=== PATIENT | male | born 1980 | race Caucasian/White ===

== ENCOUNTER 2019-01-27 18:58 | Emergency (ER) | payer OTHER ==
--- NOTE | 2019-01-27 21:19 | ED Physician Documentation ---
History of Present Illness - Stated complaint Stated Complaint: SI - Chief complaint Chief Complaint: MHE - Additonal information Additional information: This is a 38-year-old male who presents with a resolved fleeting thought of self-harm. Patient states that he is unhappy with his current work, he feels like he is really not contributing in any meaningful way at work, and he has spoken with the supervisors multiple times about changing positions and he is been told this is not possible. He has had increasing feelings of frustration and at home he feels that he has been acting distant towards his and his child. He this morning when he was driving to work had a brief moment where he thought "I could undo my seatbelt open the door and jump out of my car." He immediately felt guilty about this, and he is confident he would never take such an action. He has never been depressed before in his life, denies substance abuse. He drinks alcohol socially once in the great while. He mentioned to his supervisor fertilizer the episode in the car to help demonstrate how frustrated he is with his current situation, and they sent him here for evaluation. Review of Systems Constitutional: denies: Fever Cardiac: denies: Chest pain / pressure Respiratory: denies: Dyspnea GI: denies: Abdominal Pain : denies: Dysuria Neurologic: denies: Generalized weakness Psychiatric: reports: Depressed PD PAST MEDICAL HISTORY - Past Medical History Cardiovascular: Hypertension - Past Surgical History General: Appendectomy - Present Medications Home Medications: Ambulatory Orders Medication Instructions Recorded Confirmed Lisinopril 1 tab PO DAILY 01/27/19 01/27/19 - Allergies Allergies/Adverse Reactions: Allergies Allergy/AdvReac Type Severity Reaction Status Date / Time No Known Drug Allergies Allergy Verified 01/27/19 21:25 - Living Situation Living Situation: reports: With family Living Arrangement: reports: At home - Social History Does the pt smoke?: No PD ED PE NORMAL - Vitals Vital signs reviewed: Yes - General General: Alert and oriented X 3, No acute distress - HEENT HEENT: PERRL - Neck Neck: Supple, no meningeal sign - Cardiac Cardiac: RRR, No murmur - Respiratory Respiratory: No respiratory distress, Clear bilaterally - Abdomen Abdomen: Normal bowel sounds, Non distended - Derm Derm: Warm and dry - Extremities Extremities: No deformity - Neuro Neuro: Alert and oriented X 3 - Psych Psych: Other (Alert, cooperative, normal affect. No hallucinations, endorses so me depression. No active suicidal ideation. No HI.) Results - Vitals Vitals: Oxygen O2 Source Room air - Labs Labs: Laboratory Tests 01/27/19 01/27/19 21:30 21:30 WBC 7.8 RBC 4.79 Hgb 15.8 Hct 45.3 MCV 94.6 H MCH 33.0 H MCHC 34.9 RDW 11.9 L Plt Count 287 MPV 8.6 Neut # (Auto) 5.7 Lymph # (Auto) 1.1 L [place] # (Auto) 0.7 Eos # (Auto) 0.2 Baso # (Auto) 0.1 Absolute Nucleated RBC 0.00 Nucleated RBC % 0.0 Sodium 138 Potassium 3.5 Chloride 96 L Carbon Dioxide 31 Anion Gap 11.0 BUN 12 Creatinine 1.2 Estimated GFR (MDRD) 69 L Glucose 94 Calcium 9.4 Ethyl Alcohol < 5.0 PD MEDICAL DECISION MAKING - ED course Complexity details: considered differential (Depression, SI, thyroid disturbance, substance use) ED course: Patient is well-appearing on examination, he is logical, cooperative, and has good insight into his thoughts and depression. He explains that he had one isolated episode of suicidal ideation on the way to work today, has not any suicide attempts, He felt immediately guilty about his thoughts and he tells me he would never actually commit suicide. Labs are unremarkable. His depression seems to be linked specifically to his current lack of job satisfaction. He states that he has talked to command several times about this and he does not feel like he is making any progress and this is causing him to feel more depressed and annoyed with work, and this is overflowing other parts of his life. Patient is very low risk for suicide at this time. He has good support structure, and he is linked into health through the [employer]. I spoke to an officer who arrived in the emergency department, and they [place]. They also plan to put him on a 24-hour watch, although I do not feel strongly about this given t hat he is not suicidal and is very reasonable at this time, and he will be with his at home, and will have follow up within 12 hours. I reviewed return precautions, resources for help, and the plan of care, of which patient agreed. He continues to deny SI and has a normal affect on discharge. Departure - Departure Disposition: 01 Home, Self Care Clinical Impression: Thoughts of self harm Condition: Good Instructions: ED Depression Follow-Up: DOUG RANGEL [Primary Care Provider] - Within 3 Days Comments: It sounds like you are depressed, and this is likely related to your current unhappiness with your work. Your labs today did not reveal any obvious contributing causes to your feelings of depression. I do not think you need to be hospitalized for your depression at this time, but it is very important that you follow-up with a mental health provider tomorrow morning like we talked about. If you have any increasing thoughts of self-harm, please return to the emergency department immediately. The suicide prevention Lifeline is . Please continue to talk to your supervisors about potential changes to your work. Discharge Date/Time: 01/27/19 22:41
[2019-01-27 21:24] VITALS: BP 163/110
[2019-01-27 21:34] LABS: BASOPHILS # (AUTO) 0.1 10^3/uL (0.0-0.1); EOSINOPHILS # (AUTO) 0.2 10^3/uL (0.0-0.7); EOSINOPHILS % (AUTO) 1.9 %; HGB - HEMOGLOBIN 15.8 g/dL (14.0-18.0); LYMPHOCYTES # (AUTO) 1.1 10^3/uL (1.5-3.5); LYMPHOCYTES % (AUTO) 14.5 %; MEAN CORPUSCULAR HGB CONC 34.9 g/dL (32.0-36.0); MEAN CORPUSCULAR VOLUME 94.6 fL (80.0-94.0); MEAN PLATELET VOLUME 8.6 fL (7.4-11.4); MONOCYTES # (AUTO) 0.7 10^3/uL (0.0-1.0); MONOCYTES % (AUTO) 8.9 %; NEUTROPHILS # (AUTO) 5.7 10^3/uL (1.5-6.6); NEUTROPHILS % (AUTO) 73.3 %; PLT - PLATELET COUNT 287 10^3/uL (130-450); RED BLOOD COUNT 4.79 10^6/uL (4.70-6.10); RED CELL DISTRIBUTION WIDTH 11.9 % (12.0-15.0); WHITE BLOOD COUNT 7.8 x10^3/uL (4.8-10.8)
[2019-01-27 21:44] LABS: BUN - BLOOD UREA NITROGEN 12 mg/dL (6-20); CALCIUM 9.4 mg/dL (8.5-10.3); CARBON DIOXIDE - CO2 31 mmol/L (21-32); CHLORIDE 96 mmol/L (101-111); CREATININE 1.2 mg/dL (0.6-1.2); GFR - MDRD 69 (>89); GLUCOSE 94 mg/dL (70-100); SODIUM 138 mmol/L (135-145)
== END 2019-01-27 22:41 | disposition home or self-care (01) ==
LOC: ED 18:58
DX: F32.9 Major depressive disorder, single episode, unspecified (principal); R45.851 Suicidal ideations; I10 Essential (primary) hypertension
CPT/HCPCS: 36415; 80048; 80320; 85025; 99283

== ENCOUNTER 2019-02-24 14:46 | Emergency (ER) | payer OTHER ==
--- NOTE | 2019-02-24 15:02 | ED Physician Documentation ---
PD HPI LOWER EXT INJURY - Stated complaint Stated Complaint: LT TOE INJURY - Chief complaint Chief Complaint: Ext Problem - History obtained from History obtained from: Patient - History of Present Illness PD HPI LOW EXT INJURY LOCATION: Left, Toe (His great toe was injured when another player playing [employer] stepped on his toe. He has pain at the great toe and also lifting of the distal portion of the toe. The base of the toenail is good.) Type of injury: Blunt / blow (stepped on by another person playing [employer], with toe pain and lifting of end of toenail.) Timing - onset: How many hours ago (1), Today Timing - duration: Hours (1) Timing - details: Abrupt onset, Still present Worsened by: Moving, Palpating Associated symptoms: No: Weakness, Numbness Similar symptoms before: Has not had sx before Review of Systems Skin: denies: Laceration (s) Musculoskeletal: reports: Extremity pain (right great toe) Neurologic: denies: Focal weakness, Numbness PD PAST MEDICAL HISTORY - Past Medical History Cardiovascular: Hypertension - Past Surgical History Past Surgical History: Yes General: Appendectomy HEENT: Rhinoplasty - Present Medications Home Medications: Ambulatory Orders Medication Instructions Recorded Confirmed lisinopriL [Lisinopril] 1 tab PO DAILY 01/27/19 01/27/19 - Allergies Allergies/Adverse Reactions: Allergies Allergy/AdvReac Type Severity Reaction Status Date / Time Sulfa (Sulfonamide Allergy Rash Verified 02/24/19 14:57 Antibiotics) - Social History Does the pt smoke?: No Smoking Status: Never smoker Does the pt drink ETOH?: Yes Does the pt have substance abuse?: No - Immunizations Immunizations are current?: Yes - POLST Patient has POLST: No PD ED PE NORMAL - Vitals Vital signs reviewed: Yes - General General: Alert and oriented X 3, Well developed/nourished, Other (He does appear very uncomfortable due to the toe pain. There is lifting of the distal third of the nail and a perpendicular direction to the nailbed. There is minimal bleeding of the nailbed. The base of the nail is not lifted and there is no subungual hematoma. The toe itself is generally tender with minimal swelling. The MTP joint is not tender. He has normal sensation at the tip. There is good color and capillary fill.) - Derm Derm: Normal color, Warm and dry - Neuro Neuro: Alert and oriented X 3, No motor deficit, No sensory deficit, Normal speech Results - Vitals Vitals: Vital Signs - 24 hr 02/24/19 02/24/19 14:54 17:25 Temperature 36.5 C 36.9 C Heart Rate 110 H 84 Respiratory 18 16 Rate Blood Pressure 147/92 H 136/90 H O2 Saturation 98 98 Oxygen O2 Source Room air - Rads (name of study) toe xray Radiology: Prelim report reviewed (no fractures), EMP read contemporaneously, See rad report PD MEDICAL DECISION MAKING - ED course Complexity details: reviewed results, re-evaluated patient (still hurting a lot and does not feel he can walk on foot, so given crutches. ), considered differential (I did trim the lifted portion of the end of the toenail so it was not in the way. He is having considerable pain for a toenail and toe injury. He is given some p.o. pain medication. Topical lidocaine was also put on the toe nailbed. We will get an x-ray of the toe.), d/w patient Departure - Departure Disposition: 01 Home, Self Care Clinical Impression: Nail avulsion, toe Qualifiers: Encounter type: initial encounter Qualified Code(s): S91.209A - Unspecified open wound of unspecified toe(s) with damage to nail, initial encounter Toe contusion Qualifiers: Encounter type: initial encounter Toe: great toe Damage to nail status: with damage Laterality: left Qualified Code(s): S90.212A - Contusion of left great toe with damage to nail, initial encounter Condition: Stable Record reviewed to determine appropriate education?: Yes Instructions: ED Contusion Lower Ext Follow-Up: DOUG RANGEL [Primary Care Provider] - Comments: Crutches and partial weightbearing as needed for the toe injury. There are no fracture seen on x-ray. This should improve over the short-term such as few days. Ibuprofen or naproxen 2-3 times a day and add Tylenol as needed. Ointment to the nailbed injury to keep it softer. The base of the nail appears good so it should grow out and the nail was should not have any long-term problems.Recheck if signs of infection. Forms: Activity restrictions Discharge Date/Time: 02/24/19 17:30
[2019-02-24] MEDS ORDERED: HYDROcod/ACETAM 5/325 MG TABLET PO STA ×2 (15:15→16:13)
[2019-02-24] MEDS ORDERED: LIDOCAINE-EPINEPH-TETRACAINE 3 ML SYRINGE TOP STA (15:15)
[2019-02-24] MEDS ORDERED: IBUPROFEN 600 MG TABLET PO STA (16:13)
--- NOTE | 2019-02-24 16:38 | XRAY Report ---
Reason: great toe injury with tenderness Procedure Date: 02/24/2019 Accession Number: [id number] / [id number] Procedure: XR - Toe(s) LT CPT Code: Final Report FULL RESULT: EXAM: LEFT TOE RADIOGRAPHY EXAM DATE: 02/24/2019 04:13 PM. CLINICAL HISTORY: Great toe injury with tenderness. COMPARISON: None. TECHNIQUE: 3 views. FINDINGS: Bones: Normal. No fracture or bone lesion. Joints: Normal. No subluxations. Soft Tissues: Some soft tissue swelling of the first digit. No radiopaque foreign bodies. A dressing is in place. IMPRESSION: Soft tissue injury, no bony abnormality. RADIA
[2019-02-24 17:41] VITALS: BP 136/90
== END 2019-02-24 17:30 | disposition home or self-care (01) ==
LOC: ED 14:46
DX: S90.212A Contusion of left great toe with damage to nail, initial encounter (principal); W50.0XXA Accidental hit or strike by another person, initial encounter; Y93.68 Activity, volleyball (beach) (court); I10 Essential (primary) hypertension
CPT/HCPCS: 11719; 73660; 99283; A9270

== ENCOUNTER 2020-05-15 13:00 | Emergency (ER) | payer OTHER ==
[2020-05-15 13:12] VITALS: BP 145/98
--- NOTE | 2020-05-15 13:24 | ED Physician Documentation ---
History of Present Illness - Stated complaint Stated Complaint: MALE - Chief complaint Chief Complaint: General - History obtained from History obtained from: Patient - Additonal information Additional information: About 17 hours ago developed right testicular pain. Nonradiating. It is associated with some urinary frequency and a small amount of diarrhea. Has never had this before. There was no injury. No nausea. Pain comes in waves. No back pain. No concern for STDs. Review of Systems Constitutional: reports: Reviewed and negative Nose: reports: Reviewed and negative Throat: reports: Reviewed and negative Cardiac: reports: Reviewed and negative Respiratory: reports: Reviewed and negative PD PAST MEDICAL HISTORY - Past Medical History Cardiovascular: Hypertension Respiratory: None Neuro: None Endocrine/Autoimmune: None - Past Surgical History Past Surgical History: Yes General: Appendectomy HEENT: Rhinoplasty - Present Medications Home Medications: Ambulatory Orders Medication Instructions Recorded Confirmed amLODIPine [Norvasc] 10 mg PO DAILY 09/23/19 05/15/20 HYDROcod/ACETAM 5/325 [[place] 5/325] 1 - 2 tab PO Q6H PRN #15 tablet 05/15/20 - Allergies Allergies/Adverse Reactions: Allergies Allergy/AdvReac Type Severity Reaction Status Date / Time cefaclor [From Ceclor] Allergy Rash Verified 05/15/20 13:12 Sulfa (Sulfonamide Allergy Rash Verified 05/15/20 13:12 Antibiotics) - Social History Does the pt smoke?: No Smoking Status: Never smoker Does the pt drink ETOH?: Yes Does the pt have substance abuse?: No - Immunizations Immunizations are current?: Yes - POLST Patient has POLST: No PD ED PE NORMAL - Vitals Vital signs reviewed: Yes - General General: Alert and oriented X 3, No acute distress - Abdomen Abdomen: Soft, Non tender - Male Male : Other (Testicles have normal lie and normal cremaster reflexes. The superior part of the right testicle is tender.) - Back Back: No CVA TTP, No spinal TTP - Neuro Neuro: Alert and oriented X 3, Normal speech Results - Vitals Vitals: Vital Signs - 24 hr 05/15/20 05/15/20 13:08 13:21 Temperature 36.8 C 36.8 C Heart Rate 122 H 122 H Respiratory 20 20 Rate Blood Pressure 145/98 H 145/98 H O2 Saturation 99 99 Oxygen O2 Source Room air - Labs Labs: Laboratory Tests 05/15/20 14:00 Urine Color YELLOW Urine Clarity CLEAR Urine pH 6.0 Ur Specific [place] >=1.030 H Urine Protein 100 H Urine Glucose (UA) NEGATIVE Urine Ketones NEGATIVE Urine Occult Blood MODERATE H Urine Nitrite NEGATIVE Urine Bilirubin NEGATIVE Urine Urobilinogen 0.2 (NORMAL) Ur Leukocyte Esterase NEGATIVE Urine RBC 11-25 H Urine WBC 4-5 Ur Squamous Epith Cells NONE SEEN Urine Bacteria None Seen Urine Casts 0-2 Hyaline Casts Urine Culture Comments NOT INDICATED PD MEDICAL DECISION MAKING - ED course ED course: 39-year-old gentleman presents with right sided testicular pain for about 18 hours. Examination without evidence of torsion and ultrasound negative. Noted hematuria, and this was suggestive of potentially referred pain from ureterolithiasis in such a CT was done, he does have hydronephrosis but no ureterolithiasis. Also thickening of the terminal ileum, fatty liver. He was advised to temper alcohol use although he says he does not drink much. Discussed need for both urology and GI follow-up given the findings on CT. Departure - Departure Disposition: 01 Home, Self Care Clinical Impression: Right testicular pain Hydronephrosis Qualifiers: Hydronephrosis type: unspecified Qualified Code(s): N13.30 - Unspecified hydronephrosis Condition: Good Record reviewed to determine appropriate education?: Yes Prescriptions: HYDROcod/ACETAM 5/325 [[place] 5/325] 1 - 2 tab PO Q6H PRN #15 tablet PRN Reason: Pain Comments: As discussed, you have moderate to severe right-sided hydronephrosis without ureterolith seen. Cause of this is unclear but is likely what is causing the right testicular pain. Talk with your doctor tomorrow about a referral to a urologist for consideration for further testing such as cystoscopy and ureteroscopy. We also noted that you have wall thickening in the terminal ileum which could be consistent with inflammatory bowel disease such as Crohn's disease. Talk with your doctor about a referral to a rehabilitation program coordinator. Retu rn if worsening or new symptoms develop.
[2020-05-15 14:07] LABS: BILIRUBIN,URINE NEGATIVE (NEGATIVE); GLUCOSE, URINE (UA) NEGATIVE (NEGATIVE); KETONES,URINE (UA) NEGATIVE (NEGATIVE); LEUKOCYTE ESTERASE, URINE NEGATIVE (NEGATIVE); NITRITE,URINE NEGATIVE (NEGATIVE); OCCULT BLOOD,URINE MODERATE (NEGATIVE); PROTEIN,URINE 100 mg/dL (NEGATIVE); UROBILINOGEN,URINE 0.2 (NORMAL) E.U./dL (NORMAL)
--- NOTE | 2020-05-15 14:12 | Ultrasound Report ---
PROCEDURE: Testicle w/Doppler INDICATIONS: R testicular pain TECHNIQUE: Real-time scanning was performed of the scrotum and testicles, with image documentation. Color and p ulse Doppler interrogation was performed of both testicles. COMPARISON: None. FINDINGS: Right: Testicle is normal in size at 4 x 1.9 x 2.6 cm, and homogenous in echotexture. Epididymis is normal in overall size and morphology. No hydrocele or varicoceles. Overlying scrotal skin is norm al in thickness. Left: Testicle is normal in size at 4 x 2.1 x 2.3 cm, and homogeneous in echotexture. Epididymis is normal in overall size and morphology. No hydrocele or varicoceles. Overlying scrotal skin is norm al in thickness. Doppler: Color and pulse Doppler demonstrate normal and symmetric arterial flow in both testicles. IMPRESSION: Negative ultrasound. Normal-appearing testicles, with normal-appearing, symmetric vascularity seen within the testicles. Note: Concordant preliminary findings given by the cookie mixer helper upon the completion of the examination to Dr. Cooley at 2:00 PM on 05/07/2020. Reviewed by: Ryne Perez MD on 05/15/2020 1:11 PM KM Approved by: Ryne Perez MD on 05/15/2020 1:11 PM KM Station ID: [id number]
[2020-05-15 14:24] LABS: BACTERIA,URINE None Seen /HPF (None Seen); CLARITY,URINE CLEAR (CLEAR); SQUAMOUS EPITHELIAL CELL,UR NONE SEEN (<= Few)
[2020-05-15] MEDS ORDERED: HYDROcod/ACETAM 5/325 MG TABLET PO STA (14:29)
--- NOTE | 2020-05-15 15:07 | CT Report ---
PROCEDURE: Abdomen/Pelvis WO INDICATIONS: R groin pain/hematuria TECHNIQUE: Noncontrast 5 mm thick sections acquired from the diaphragms to the symphysis. 5 mm coronal and sagi ttal reformats were then performed. For radiation dose reduction, the following was used: automated exposure control, adjustment of mA and/or kV according to patient size. COMPARISON: None. FINDINGS: Image quality: Excellent. ABDOMEN: Lung bases: Lung bases are clear. Heart size is normal. Solid organs: Liver and spleen are normal in size. Diffuse fatty liver infiltration can be seen. G allbladder is relatively collapsed at the time of this study. Pancreas is normal in contours. No adrenal nodules. There is moderate to prominent right-sided hydroureter and hydronephrosis. There is no stone seen. Ho wever, where the ureter transitions to a more normal caliber, there is apparent ureteral wall thicken ing, as on series 6 image 49. No nonobstructing stones can be seen within either kidney. No left-side d hydronephrosis is seen. The kidneys demonstrate normal size. Peritoneum and bowel: There is thickening with fatty metaplasia seen involving the terminal ileum an d the proximal descending colon. Unenhanced bowel loops demonstrate normal wall thickness and caliber . No free fluid or air. Nodes and vessels: No retroperitoneal or mesenteric adenopathy by size criteria. Aorta and inferior vena cava are normal in caliber. Miscellaneous: No ventral hernias. PELVIS: Genitourinary: Bladder wall thickness is normal. Miscellaneous: No inguinal hernias or adenopathy. Bones: No suspicious bony lesions. Apparent bone islands can be seen involving the femoral necks. No vertebral body compression fractures. IMPRESSION: Moderate to severe right-sided hydronephrosis is seen, yet without a stone. There is suspicion for a distal ureteral mass. Please consider a urology referral. Wall thickening and fatty metaplasia can be seen involving the terminal ileum and the proximal descen ding colon. Please consider Crohn's disease. Incidental note is made of: Fatty liver infiltration Apparent bone islands within the femoral necks Reviewed by: Ryne Perez MD on 05/15/2020 2:05 PM AKDT Approved by: Rnye Perez MD on 05/15/2020 2:05 PM AKDT Station ID: [id number]
== END 2020-05-15 16:16 | disposition home or self-care (01) ==
LOC: ED 13:00
DX: N50.811 Right testicular pain (principal); N13.30 Unspecified hydronephrosis; R31.9 Hematuria, unspecified; K63.89 Other specified diseases of intestine; K76.0 Fatty (change of) liver, not elsewhere classified; I10 Essential (primary) hypertension
CPT/HCPCS: 74176; 76870; 81001; 93975; 99284; A9270; 87086

== ENCOUNTER 2020-09-21 07:51 | Outpatient (CLI) | payer OTHER ==
--- NOTE | 2020-09-21 09:15 | XRAY Report ---
PROCEDURE: Lumbar Spine 2 View INDICATIONS: ACUTE LOW BACK PX TECHNIQUE: 2 views of the lumbar spine were acquired. COMPARISON: None. FINDINGS: No acute fracture. Scattered multilevel endplate spurring and diffuse facet arthropathy. Trace retrol isthesis of L3 on L4. The disc spaces appear grossly preserved. IMPRESSION: Minimal lumbar spondylitic changes as above. Diffuse facet arthropathy. Trace retrolisthesis of L3 on L4. If the patient's pain or other symptoms persist, consider further evaluation with MRI. Reviewed by: Greg Unger MD on 09/21/2020 9:13 AM PDT Approved by: Greg Unger MD on 09/21/2020 9:13 AM PDT Station ID: [id number]
== END 2020-09-21 07:52 | disposition home or self-care (01) ==
LOC: DI.N 07:51
PROVIDERS: ATTEND Nurse Practitioner
DX: M54.5 Low back pain (principal); M47.816 Spondylosis without myelopathy or radiculopathy, lumbar region; M43.16 Spondylolisthesis, lumbar region

== ENCOUNTER 2020-10-05 11:29 | Outpatient (CLI) | payer OTHER | END 2020-10-05 11:30 | disposition critical access hospital (66) | LOC: EMS 11:29 | DX: R25.1 Tremor, unspecified (principal); F41.9 Anxiety disorder, unspecified; R45.82 Worries | CPT/HCPCS: A0425; A0429 ==

== ENCOUNTER 2020-10-05 11:50 | Emergency (ER) | payer OTHER ==
[2020-10-05 12:17] LABS: BASOPHILS # (AUTO) 0.1 10^3/uL (0.0-0.1); BASOPHILS % (AUTO) 1.4 %; EOSINOPHILS % (AUTO) 0.3 %; HCT - HEMATOCRIT 45.8 % (42.0-52.0); HGB - HEMOGLOBIN 16.2 g/dL (14.0-18.0); LYMPHOCYTES # (AUTO) 0.5 10^3/uL (1.5-3.5); LYMPHOCYTES % (AUTO) 8.6 %; MEAN CORPUSCULAR HEMOGLOBIN 37.3 pg (27.0-31.0); MEAN CORPUSCULAR HGB CONC 35.4 g/dL (32.0-36.0); MEAN CORPUSCULAR VOLUME 105.5 fL (80.0-94.0); MEAN PLATELET VOLUME 9.6 fL (7.4-11.4); MONOCYTES # (AUTO) 0.6 10^3/uL (0.0-1.0); MONOCYTES % (AUTO) 9.5 %; NEUTROPHILS # (AUTO) 4.7 10^3/uL (1.5-6.6); NEUTROPHILS % (AUTO) 79.7 %; PLT - PLATELET COUNT 279 10^3/uL (130-450); RED BLOOD COUNT 4.34 10^6/uL (4.70-6.10); RED CELL DISTRIBUTION WIDTH 12.1 % (12.0-15.0); WHITE BLOOD COUNT 5.9 x10^3/uL (4.8-10.8)
--- NOTE | 2020-10-05 12:17 | XRAY Report ---
PROCEDURE: Chest 1 View X-Ray INDICATIONS: Chest Pain TECHNIQUE: One view of the chest was acquired. COMPARISON: 09/23/2019 FINDINGS: Surgical changes and devices: None. Lungs and pleura: No pleural effusions or pneumothorax. Lungs are clear. Mediastinum: Mediastinal contours appear normal. Heart size is normal. Bones and chest wall: No suspicious bony lesions. Overlying soft tissues appear unremarkable. IMPRESSION: No acute cardiopulmonary process demonstrated radiographically. Reviewed by: Sonny Stewart MD on 10/05/2020 12:15 PM PDT Approved by: Sonny Stewart MD on 10/05/2020 12:15 PM PDT Station ID: [id number]
[2020-10-05 12:24] LABS: INR 1.2 (0.8-1.2); PT - PROTHROMBIN TIME 12.9 secs (9.9-12.6)
[2020-10-05] MEDS ORDERED: LORazepam 1 MG TABLET PO STA (12:34)
[2020-10-05 12:36] LABS: ALBUMIN/GLOBULIN RATIO 1.1 (1.0-2.2); BILIRUBIN,TOTAL 1.6 mg/dL (0.2-1.0); CALCIUM 9.4 mg/dL (8.5-10.3); CREATININE 0.8 mg/dL (0.6-1.2); POTASSIUM 3.8 mmol/L (3.5-5.0); TOTAL PROTEIN 7.7 g/dL (6.7-8.2)
--- NOTE | 2020-10-05 12:36 | ED Physician Documentation ---
History of Present Illness - Stated complaint Stated Complaint: PALPITATIONS - Chief complaint Chief Complaint: Cardiac - Additonal information Additional information: 39-year-old male was advised to come to the ER for evaluation of tachycardia palpitations and panic. He reports that yesterday evening he got very stressed and upset about some personal work issues as well as dealing with some personal health issues. He is apparently being worked up for a possible mass obstructing his right kidney through [facility]. He does report a longstanding history of hypertension for which he takes amlodipine. He also takes Cosentyx for history of psoriasis. He denies any is having chest pain or chest pressure. He reports being very anxious and worried and noted that he was somewhat tremulous therefore he presented to walk-in. While there he was noted to have an EKG that showed some possible anterior lateral changes. He was tachycardic. He was also tremulous. He comes here for further evaluation. Review of Systems Constitutional: denies: Fever, Chills Eyes: reports: Loss of vision Ears: reports: Reviewed and negative Nose: reports: Reviewed and negative Throat: reports: Reviewed and negative Cardiac: reports: Chest pain / pressure, Palpitations. denies: Pedal edema, Calf pain GI: reports: Reviewed and negative : reports: Reviewed and negative Skin: reports: Reviewed and negative PD PAST MEDICAL HISTORY - Past Medical History Cardiovascular: Hypertension Respiratory: None Neuro: None Endocrine/Autoimmune: None - Past Surgical History Past Surgical History: Yes General: Appendectomy HEENT: Rhinoplasty - Present Medications Home Medications: Ambulatory Orders Medication Instructions Recorded Confirmed amLODIPine [Norvasc] 10 mg PO DAILY 09/23/19 10/05/20 LORazepam [Ativan] 1 mg PO BID #15 tablet 10/05/20 Metoprolol Tartrate [Lopressor] 25 mg PO BID #60 tablet 10/05/20 Secukinumab [Cosentyx (2 Syringes)] 150 mg SUBQ PRN PRN 10/05/20 10/05/20 - Allergies Allergies/Adverse Reactions: Allergies Allergy/AdvReac Type Severity Reaction Status Date / Time cefaclor [From [facility]] Allergy Rash Verified 10/05/20 11:57 Sulfa (Sulfonamide Allergy Rash Verified 10/05/20 11:57 Antibiotics) - Social History Does the pt smoke?: No Smoking Status: Never smoker Does the pt drink ETOH?: Yes Does the pt have substance abuse?: No - Immunizations Immunizations are current?: Yes - POLST Patient has POLST: No PD ED PE EXPANDED - General General: Alert, Anxious - Cardiac Cardiac: Regular Rate, Tachy, Radial strong equal, Cap refill < 2 sec. No: Murmur Present - Respiratory Respiratory: Clear to ausultation phyllis. No: Distress, Labored - Abdomen Abdomen: Normal Bowel sounds. No: Tender to palpation - Derm Derm: Normal color, Warm and dry - Extremities Extremities: Normal. No: Deformity, Tenderness - Neuro Neuro: Alert and Oriented X 3, CNII-XII intact - GCS Eye Opening: Spontaneous Motor: Obeys Commands Verbal: Oriented Total: 15 - Psych Psych: Anxious Results - Vitals Vitals: Vital Signs - 24 hr 10/05/20 11:59 Temperature 37.0 C Heart Rate 106 H Respiratory 19 Rate Blood Pressure 153/110 H O2 Saturation 100 Oxygen O2 Source Room air - EKG (time done) 1156 Rate: Rate (enter#) (114) Rhythm: Sinus tachycardia Jefferson: Normal Intervals: Normal NM. No: Prolonged QT Ischemia: Non specific changes Compare to prior EKG: Old EKG unavailable Computer interpretation: Agree with computer - Labs Labs: Laboratory Tests 10/05/20 10/05/20 10/05/20 12:12 12:12 12:12 WBC 5.9 RBC 4.34 L Hgb 16.2 Hct 45.8 MCV 105.5 H MCH 37.3 H MCHC 35.4 RDW 12.1 Plt Count 279 MPV 9.6 Neut # (Auto) 4.7 Lymph # (Auto) 0.5 L [place] # (Auto) 0.6 Eos # (Auto) 0.0 Baso # (Auto) 0.1 Absolute Nucleated RBC 0.00 Nucleated RBC % 0.0 PT 12.9 H INR 1.2 Sodium 138 Potassium 3.8 Chloride 100 L Carbon Dioxide 24 Anion Gap 14.0 H BUN 7 Creatinine 0.8 Estimated GFR (MDRD) 109 Glucose 98 Calcium 9.4 Total Bilirubin 1.6 H AST 297 H ALT 155 H Alkaline Phosphatase 131 H Troponin I High Sens Total Protein 7.7 Albumin 4.0 Globulin 3.7 Albumin/Globulin Ratio 1.1 Lipase 56 H 10/05/20 12:12 WBC RBC Hgb Hct MCV MCH MCHC RDW Plt Count MPV Neut # (Auto) Lymph # (Auto) [place] # (Auto) Eos # (Auto) Baso # (Auto) Absolute Nucleated RBC Nucleated RBC % PT INR Sodium Potassium Chloride Carbon Dioxide Anion Gap BUN Creatinine Estimated GFR (MDRD) Glucose Calcium Total Bilirubin AST ALT Alkaline Phosphatase Troponin I High Sens 4.6 Total Protein Albumin Globulin Albumin/Globulin Ratio Lipase - Rads (name of study) CXR Radiology: Final report received (No acute cardiopulmonary process demonstrated radiographically.) PD MEDICAL DECISION MAKING - ED course Complexity details: reviewed results, considered differential, d/w patient, d/w family ED course: 39-year-old male was advised to come to the emergency department for evaluation of palpitations and tachycardia. This is in the setting of exceptional job stress as well as recent diagnosis of a mass within his abdomen causing hydronephrosis. Screening EKG did show a sinus tachycardia with questionable anterior lateral changes. However high-sensitivity troponin is negative. This gentleman presented is quite anxious and he was given 2 mg of Ativan which markedly improved the anxiety. However he remains tachycardic with a heart rate varying between 110 and 120 in the emergency department. He was given 25 mg of metoprolol with appropriate reduction in his heart rate. Screening labs do show a significant elevation in transaminases compared to a year ago. This gentleman is a moderate drinker. He reports to me that he discussed his transaminase with his primary care provider about 3 weeks ago and was advised alcohol cessation. I have reiterated this claim. He denies any abdominal pain nausea or vomiting. Patient will be started on metoprolol twice daily. I will prescribe a very limited amount of Ativan. He is to continue close follow-up with his primary for reevaluation of his transaminase as well as with [facility] for the abdominal mass. Departure - Departure Disposition: 01 Home, Self Care Clinical Impression: Palpitations, Elevated LFTs, Anxiety Condition: Stable Record reviewed to determine appropriate education?: Yes Follow-Up: BRIANNE MCKEON MD [Primary Care Provider] - Prescriptions: LORazepam [Ativan] 1 mg PO BID #15 tablet Metoprolol Tartrate [Lopressor] 25 mg PO BID #60 tablet Comments: Jace you were seen in the ER today for anxiety and palpitations. Your screening EKG showed a fairly elevated heart rate. However the screening labs did not show signs that you are having a heart attack. The most significant finding on your labs is that your liver function tests are elevated. I do recommend that you abstain from any further alcohol use and discuss this with your primary doctor. I would like to have your liver function tests repeated in about 3 weeks time to see if alcohol cessation improves this. To help manage her palpitations and heart rates I have prescribed you to take metoprolol twice daily. If at any point you feel that you are having chest pain worsening anxiety or palpitations return immediately to the ER. I have also prescribed a limited amount of Ativan to be used for severe stress only. This cannot be refilled from the emergency department so discussed this with your primary care doctor as soon as possible.
[2020-10-05] MEDS ORDERED: METOPROLOL TARTRATE 50 MG TABLET PO STA (13:24)
[2020-10-05 14:10] VITALS: BP 137/100
== END 2020-10-05 14:32 | disposition home or self-care (01) ==
LOC: EDBD → EDUNIT# → ED 11:50
DX: F41.9 Anxiety disorder, unspecified (principal); Z56.6 Other physical and mental strain related to work; R79.89 Other specified abnormal findings of blood chemistry
CPT/HCPCS: 36415; 71045; 80053; 83690; 84484; 85025; 85610; 93005; 99284; A9270; J8499

== ENCOUNTER 2021-04-20 17:30 | Outpatient (CLI) | payer OTHER | END 2021-04-20 17:31 | disposition critical access hospital (66) | LOC: EMS 17:30 | DX: R55 Syncope and collapse (principal); R11.2 Nausea with vomiting, unspecified; R10.812 Left upper quadrant abdominal tenderness; R10.811 Right upper quadrant abdominal tenderness; R53.1 Weakness; R42 Dizziness and giddiness | CPT/HCPCS: A0425; A0427 ==

== ENCOUNTER 2021-04-20 17:55 | Inpatient (IN) | payer OTHER ==
[2021-04-20] MEDS ORDERED: DEXTROSE 10% 250 ML IV STA (18:05)
[2021-04-20 18:42] LABS: BASOPHILS % (AUTO) 0.2 %; EOSINOPHILS # (AUTO) 0.2 10^3/uL (0.0-0.7); EOSINOPHILS % (AUTO) 2.7 %; HCT - HEMATOCRIT 37.8 % (42.0-52.0); HGB - HEMOGLOBIN 13.2 g/dL (14.0-18.0); LYMPHOCYTES # (AUTO) 0.1 10^3/uL (1.5-3.5); LYMPHOCYTES % (AUTO) 1.6 %; MEAN CORPUSCULAR HEMOGLOBIN 33.3 pg (27.0-31.0); MEAN CORPUSCULAR HGB CONC 34.9 g/dL (32.0-36.0); MEAN CORPUSCULAR VOLUME 95.5 fL (80.0-94.0); MONOCYTES # (AUTO) 0.6 10^3/uL (0.0-1.0); MONOCYTES % (AUTO) 7.4 %; NEUTROPHILS # (AUTO) 7.1 10^3/uL (1.5-6.6); NEUTROPHILS % (AUTO) 87.7 %; PLT - PLATELET COUNT 120 10^3/uL (130-450); RED BLOOD COUNT 3.96 10^6/uL (4.70-6.10); RED CELL DISTRIBUTION WIDTH 16.1 % (12.0-15.0); WHITE BLOOD COUNT 8.1 x10^3/uL (4.8-10.8)
[2021-04-20] MEDS ORDERED: LORazepam 2 MG/ML VIAL IVP STA (18:50)
--- NOTE | 2021-04-20 18:52 | ED Physician Documentation ---
History of Present Illness - Stated complaint Stated Complaint: NAUSEA/DIZZY - Chief complaint Chief Complaint: Abd Pain - History obtained from History obtained from: Patient, EMS - History of Present Illness Timing: Last night Pain level max: 10 Pain level now: 10 - Additonal information Additional information: 40-year-old male presents to the emergency department stating he has epigastric abdominal pain with vomiting today. Nothing makes it better or worse. He states he drinks a large amount of alcohol daily. He received IV fluids, Zofran with EMS. No blood in the stool. No fever or recent illness. Has not had similar symptoms previously. Review of Systems Ten Systems: 10 systems reviewed and negative Constitutional: denies: Fever, Chills Ears: denies: Ear pain Nose: denies: Rhinorrhea / runny nose, Congestion Throat: denies: Sore throat Cardiac: denies: Chest pain / pressure, Palpitations Respiratory: denies: Dyspnea, Wheezing GI: reports: Abdominal Pain, Nausea, Vomiting. denies: Diarrhea, Hematemesis, Bloody / black stool : denies: Dysuria Skin: denies: Rash Musculoskeletal: denies: Neck pain, Back pain Neurologic: denies: Headache PD PAST MEDICAL HISTORY - Past Medical History Past Medical History: Yes Cardiovascular: Hypertension Respiratory: None Neuro: None Endocrine/Autoimmune: None Psych: Depression, Anxiety - Past Surgical History Past Surgical History: Yes General: Appendectomy HEENT: Rhinoplasty - Present Medications Home Medications: Ambulatory Orders Medication Instructions Recorded Confirmed amLODIPine [Norvasc] 10 mg PO DAILY 09/23/19 04/20/21 LORazepam [Ativan] 1 mg PO BID #15 tablet 10/05/20 04/20/21 Metoprolol Tartrate [Lopressor] 25 mg PO BID #60 tablet 10/05/20 04/20/21 Secukinumab [Cosentyx (2 Syringes)] 150 mg SUBQ PRN PRN 10/05/20 04/20/21 - Allergies Allergies/Adverse Reactions: Allergies Allergy/AdvReac Type Severity Reaction Status Date / Time cefaclor [From [facility]] Allergy Rash Verified 04/20/21 18:09 Sulfa (Sulfonamide Allergy Rash Verified 04/20/21 18:09 Antibiotics) - Social History Does the pt smoke?: No Smoking Status: Never smoker Does the pt drink ETOH?: Yes Does the pt have substance abuse?: No - Immunizations Immunizations are current?: Yes - POLST Patient has POLST: No PD ED PE NORMAL - Vitals Vital signs reviewed: Yes - General General: Alert and oriented X 3, No acute distress - HEENT HEENT: PERRL, Moist mucous membranes - Neck Neck: Supple, no meningeal sign - Cardiac Cardiac: RRR, Strong equal pulses - Respiratory Respiratory: No respiratory distress, Clear bilaterally - Abdomen Abdomen: Soft, Non distended, Other (Tender palpation epigastric. No peritoneal signs) - Back Back: No CVA TTP, No spinal TTP - Derm Derm: Warm and dry - Extremities Extremities: No edema, No calf tenderness / cord - Neuro Neuro: Alert and oriented X 3 - Psych Psych: Normal mood, Normal affect Results - Vitals Vitals: Vital Signs - 24 hr 04/20/21 04/20/21 04/20/21 18:00 18:13 19:21 Temperature 36.8 C 36.4 C L Heart Rate 125 H 111 H 139 H Respiratory 20 16 16 Rate Blood Pressure 142/108 H 158/105 H 141/108 H O2 Saturation 100 100 97 04/20/21 20:17 Temperature 36.6 C Heart Rate 123 H Respiratory 16 Rate Blood Pressure 140/103 H O2 Saturation 95 Oxygen O2 Source Room air - Labs Labs: Laboratory Tests 04/20/21 04/20/21 04/20/21 18:17 18:35 19:50 WBC 8.1 RBC 3.96 L Hgb 13.2 L Hct 37.8 L MCV 95.5 H MCH 33.3 H MCHC 34.9 RDW 16.1 H Plt Count 120 L MPV 11.0 Neut # (Auto) 7.1 H Lymph # (Auto) 0.1 L [place] # (Auto) 0.6 Eos # (Auto) 0.2 Baso # (Auto) 0.0 Absolute Nucleated RBC 0.00 Nucleated RBC % 0.0 Sodium 132 L Potassium 4.0 Chloride 90 L Carbon Dioxide 16 L Anion Gap 26.0 H BUN 11 Creatinine 0.9 Estimated GFR (MDRD) 94 Glucose 154 H Lactic Acid Calcium 8.6 Total Bilirubin 4.7 H AST 366 H ALT 118 H Alkaline Phosphatase 227 H Total Protein 7.2 Albumin 3.5 Globulin 3.7 Albumin/Globulin Ratio 0.9 L Lipase 2556 H Nasal Adenovirus (PCR) NOT DETECTED Nasal B. parapertussis DNA (PCR) NOT DETECTED Nasal Coronavir 229E PCR NOT DETECTED Nasal Coronavir HKU1 PCR NOT DETECTED Nasal Coronavir NL63 PCR NOT DETECTED Nasal Coronavir OC43 PCR NOT DETECTED Nasal Enterovir/Rhinovir PCR NOT DETECTED Nasal Influenza B PCR NOT DETECTED Nasal Influenza A PCR NOT DETECTED Nasal Parainfluen 1 PCR NOT DETECTED Nasal Parainfluen 2 PCR NOT DETECTED Nasal Parainfluen 3 PCR NOT DETECTED Nasal Parainfluen 4 PCR NOT DETECTED Nasal RSV (PCR) NOT DETECTED Nasal B.pertussis DNA PCR NOT DETECTED Nasal C.pneumoniae (PCR) NOT DETECTED Leon Human Metapneumo PCR NOT DETECTED Nasal M.pneumoniae (PCR) NOT DETECTED Nasal SARS-CoV-2 (PCR) NOT DETECTED Ethyl Alcohol 45.7 Serum Ketones 04/20/21 04/20/21 19:52 19:52 WBC RBC Hgb Hct MCV MCH MCHC RDW Plt Count MPV Neut # (Auto) Lymph # (Auto) [place] # (Auto) Eos # (Auto) Baso # (Auto) Absolute Nucleated RBC Nucleated RBC % Sodium Potassium Chloride Carbon Dioxide Anion Gap BUN Creatinine Estimated GFR (MDRD) Glucose Lactic Acid 7.9 H* Calcium Total Bilirubin AST ALT Alkaline Phosphatase Total Protein Albumin Globulin Albumin/Globulin Ratio Lipase Nasal Adenovirus (PCR) Nasal B. parapertussis DNA (PCR) Nasal Coronavir 229E PCR Nasal Coronavir HKU1 PCR Nasal Coronavir NL63 PCR Nasal Coronavir OC43 PCR Nasal Enterovir/Rhinovir PCR Nasal Influenza B PCR Nasal Influenza A PCR Nasal Parainfluen 1 PCR Nasal Parainfluen 2 PCR Nasal Parainfluen 3 PCR Nasal Parainfluen 4 PCR Nasal RSV (PCR) Nasal B.pertussis DNA PCR Nasal C.pneumoniae (PCR) Leon Human Metapneumo PCR Nasal M.pneumoniae (PCR) Nasal SARS-CoV-2 (PCR) Ethyl Alcohol Serum Ketones NEGATIVE - Rads (name of study) CT abdomen and pelvis Radiology: Final report received, EMP read contemporaneously, See rad report PD MEDICAL DECISION MAKING - ED course Complexity details: reviewed results, re-evaluated patient, considered diff erential, d/w patient, d/w admissions consultant ED course: 40-year-old male with what appears to be likely alcoholic pancreatitis and likely alcoholic hepatitis. Given IV fluids, banana bag, pain medication. Ativan. Will need admission for further care. Discussed the case with Dr. Nava, hospitalist who accepts This document was made in part using voice recognition software. While efforts are made to proofread this document, sound alike and grammatical errors may occur. IMPRESSION: 1. Peripancreatic edema and diffuse mesenteric edema in the mesenteric root, right colon gutter, left colic gutter, and perisplenic fat likely due to pancreatitis. 2.tThe third portion of the duodenum is is thickened with surrounding edema suspicious for duodenitis. 3. Severe hepatic steatosis. 4. Right renal pelviectasis, unchanged without distal stone or evidence of obstruction, unchanged compared to the prior CT. Departure - Departure Disposition: [facility] DC/Xfer Clinical Impression: Alcoholic ketoacidosis Acute alcoholic pancreatitis Qualifiers: Acute pancreatitis complication: unspecified Qualified Code(s): K85.20 - Alcohol induced acute pancreatitis without necrosis or infection Alcoholic hepatitis Qualifiers: Ascites presence: without ascites Qualified Code(s): K70.10 - Alcoholic hepa titis without ascites Condition: Stable Discharge Date/Time: 04/20/21 21:35
[2021-04-20 19:13] LABS: ALBUMIN 3.5 g/dL (3.2-5.5); ALBUMIN/GLOBULIN RATIO 0.9 (1.0-2.2); BILIRUBIN,TOTAL 4.7 mg/dL (0.2-1.0); CALCIUM 8.6 mg/dL (8.5-10.3); CREATININE 0.9 mg/dL (0.6-1.2); ETOH - ETHANOL 45.7 mg/dL; TOTAL PROTEIN 7.2 g/dL (6.7-8.2)
[2021-04-20] MEDS ORDERED: HYDROmorphone 1 MG/ML CARPUJECT IVP STA (19:15)
[2021-04-20] MEDS ORDERED: IOVERSOL 320 100 ML VIAL IVP ONE ×2 (19:20→19:42)
[2021-04-20] MEDS ORDERED: THIAMINE INJ 100 MG, MAGNESIUM SULFATE 2 GM, MULTIVITAMIN 10 ML, FOLIC ACID INJ 1 MG in... IV ONE ×5 (19:43)
[2021-04-20] MEDS ORDERED: THIAMINE 100 MG/1 ML 2 ML MDV ONE (20:10)
[2021-04-20] MEDS ORDERED: MAGNESIUM SULFATE 1 GM/2 ML VIAL ONE (20:10)
--- NOTE | 2021-04-20 20:20 | CT Report ---
PROCEDURE: Abdomen/Pelvis W INDICATIONS: upper abd pain, vomiting CONTRAST: IV CONTRAST: Optiray 320 ml: 100 PO CONTRAST: *NO PO CONTRAST TECHNIQUE: After the administration of contrast, 5 mm thick sections acquired from the diaphragms to the sym physis. 5 mm thick coronal and sagittal reformats were acquired. For radiation dose reduction, the following was used: automated exposure control, adjustment of mA and/or kV according to patient size . COMPARISON: None. FINDINGS: Image quality: Excellent. ABDOMEN: Lung bases: Lung bases are clear. Heart size is normal. Solid organs: Liver: The liver has no mass or intrahepatic biliary ductal dilatation. The portal vein and hepatic veins are patent. The liver has low density consistent with hepatic steatosis. Biliary: The gallbladder has no gallstones, pericholecystic fluid, gallbladder wall thickening, or peraza rrounding inflammatory change. Pancreas: The pancreas demonstrates peripancreatic inflammation. No fluid collections. Lungs are cons istent with acute pancreatitis. Spleen: Normal size. No mass. Adrenal glands: No hypertrophy or nodules. Kidneys: No obstructive calculus. There is pelviectasis of the right kidney, similar to the prior CT with no stones or obstruction identified distally.No solid mass. No cystic mass. Bowel: The distal esophagus and stomach are normal. The small bowel has a normal caliber and appeara nce. The terminal ileum and proximal ascending colon demonstrate fatty metaplasia, better seen on th e prior CT on 05/15/2020. This can be seen with Crohn's disease The large bowel has a normal caliber a nd appearance. There is mesenteric stranding surrounding the spleen, in the left colon gutter, and in the right colon gutter. This is new compared to the prior CT on 05/15/2020. Free air/free fluid: No free air or free fluid. Abdominal wall: No abdominal wall mass or hernia. Retroperitoneum: No retroperitoneal or mesenteric adenopathy by size criteria. Aorta and inferior ve na cava are normal in size. Lymph nodes: No adenopathy. Bones: No suspicious bony lesions. No vertebral body compression fractures. PELVIS: Genitourinary: Bladder wall thickness is normal. No pelvic fluid. Miscellaneous no inguinal hernias or adenopathy. Bones: No suspicious bony lesions. No vertebral body compression fractures. There are bone islands i n the femoral heads. IMPRESSION: 1. Peripancreatic edema and diffuse mesenteric edema in the mesenteric root, right colon gutter, left colic gutter, and perisplenic fat likely due to pancreatitis. 2.tThe third portion of the duodenum is is thickened with surrounding edema suspicious for duodenitis . 3. Severe hepatic steatosis. 4. Right renal pelviectasis, unchanged without distal stone or evidence of obstruction, unchanged com pared to the prior CT. Findings discussed with Dr. Keller Reviewed by: Armani Luciano on 04/20/2021 8:19 PM PST Approved by: Armani Luciano on 04/20/2021 8:19 PM PST Station ID: [id number]
[2021-04-20] MEDS ORDERED: ONDANSETRON ODT 4 MG TABLET TL PRN (20:22)
[2021-04-20] MEDS ORDERED: LACTATED RINGERS 1,000 ML IV ONE ×2 (20:27→20:28)
--- NOTE | 2021-04-20 20:37 | HISTORY & PHYSICAL EXAMINATION ---
Chief Complaint - Chief Complaint Chief Complaint: Abdominal pain History of Present Illness - Admitted From Admitted From:: Home - History Obtained From Records Reviewed: [facility] History obtained from: Patient, ER Physician, EMR - History of Present Illness HPI Comment/Other: This is a 40-year-old male with a past medical history significant for tremor, hypertension, psoriasis, alcohol abuse who presents today complaining of abdominal pain associated with nausea and vomiting. He states his pain began around 6 AM this morning and he has had multiple episodes of emesis. He states his pain at worst was about a 7 out of 10 and is located in epigastric region. It is nonradiating. It is now 4 out of 10 after receiving pain medication in the emergency department. His emesis has been nonbloody. He reports no fevers but has had chills. Denies chest pain, dyspnea, dysuria, urgency. He reports drinking 2-3 alcoholic beverages a day that he has been doing so since college. He denies a history of alcohol withdrawal. He states he has been told he had an inflamed liver in the past but they thought it may have been attributed to methotrexate which she was on for psoriasis and was discontinued about 6 months ago. He states he has had a tremor now for quite a few months and he has been worked up by neurology for this. He states his tremor is worse today but feels like this is due to the stress on his body. He reports no prior episode of pancreatitis or similar episode abdominal pain in the past. He has been seen by urology the [facility] for the right hydronephrosis. He states he underwent a cystoscopy where he had some tissue removed which they thought may have been causing blockage. He states they are currently monitoring him and no further procedures are planned at this time. History - Past Medical History Cardiovascular: reports: Hypertension Respiratory: reports: None Neuro: reports: Tremors Endocrine/Autoimmune: reports: None Psych: reports: Depression, Anxiety Derm: reports: Psoriasis MRSA Hx?: No - Past Surgical History General: reports: Appendectomy HEENT: reports: Rhinoplasty - Family & Social History Family History Comment/Other: His maternal grandfather positive for myocardial infarction. He denies any other family history. Living arrangement: At home Social History Notes: He smoked a pack a day for a brief period of time but quit over 10 years ago. He has been drinking 2-3 alcoholic beverages a day since college. He is in the and has lived here on [facility] for 3 years. - Substance History Abuse: Recurrent use of substance despite neg consequences: Alcohol - POLST Patient has POLST: No Meds/Allgy - Home Medications Home Medications: Ambulatory Orders Medication Instructions Recorded Confirmed amLODIPine [Norvasc] 10 mg PO DAILY 09/23/19 04/20/21 LORazepam [Ativan] 1 mg PO BID #15 tablet 10/05/20 04/20/21 Metoprolol Tartrate [Lopressor] 25 mg PO BID #60 tablet 10/05/20 04/20/21 Secukinumab [Cosentyx (2 Syringes)] 150 mg SUBQ PRN PRN 10/05/20 04/20/21 - Allergies Allergies/Adverse Reactions: Allergies Allergy/AdvReac Type Severity Reaction Status Date / Time [facility] Allergy Rash Verified 04/20/21 18:09 Sulfa (Sulfonamide Allergy Rash Verified 04/20/21 18:09 Antibiotics) Review of Systems - Constitutional Constitutional: reports: Chills. denies: Fatigue, Fever - Ears, Nose & Throat Ears, Nose & Throat: denies: Nasal discharge, Nasal congestion - Cardiovascular Cariovascular: reports: Lightheadedness. denies: Chest pain, Edema, Exertional dyspnea, Decr. exercise tolerance - Respiratory Respiratory: denies: Cough, SOB at rest, SOB with exertion - Gastrointestinal Gastrointestinal: reports: Abdominal pain, Nausea, Vomiting, Reflux/heartburn. denies: Wiley blood emesis - Genitourinary Genitourinary: denies: Dysuria, Frequency, Urgency, Hematuria - Integumentary Integumentary: reports: Lesions, Dryness - Neurological Neurological: reports: General weakness, Dizziness, Other (Tremor.). denies: Focal weakness - Hematologic/Lymphatic Hematologic/Lymphatic: denies: Anemia, Bruising, Bleeding tendencies - All Other Systems All Other Systems: reports: Reviewed and negative Prior Level of Functionality: He is independent with his ADL's. Exam - Vital Signs Reviewed Vital Signs: Yes Vital Signs: Vital Signs x48h Temp Pulse Resp BP Pulse Ox 04/20/21 20:17 36.6 C 123 H 16 140/103 H 95 04/20/21 19:21 36.4 C L 139 H 16 141/108 H 97 04/20/21 18:13 111 H 16 158/105 H 100 04/20/21 18:00 36.8 C 125 H 20 142/108 H 100 - Physical Exam General Appearance: positive: Alert, Mild distress Eyes Bilateral: positive: Normal inspection, Conjunctivae nml ENT: positive: ENT inspection nml Neck: positive: Nml inspection Respiratory: positive: No respiratory distress. negative: Rales Cardiovascular: positive: Tachycardia. negative: Irregularly irregular Abdomen: positive: No distention, Tenderness (Epigastric.). negative: Guarding, Rebound Skin: positive: Warm, Dry Extremities: positive: No pedal edema Neurologic/Psychiatric: positive: Motor nml, Other (He is tremulous at rest predominantly in his upper extremities.). negative: Disoriented to person, Disoriented to place Conclusion/Plan - Problem List (1) Acute alcoholic pancreatitis Conclusion/Plan: He appears of acute alcoholic pancreatitis. His LFTs are elevated but this appears to be chronic secondary to his alcohol use and is likely suggestive of alcoholic hepatitis. CT revealed no evidence of ductal dilatation. He will be admitted to intensive care unit given his pancreatitis and lactic acidosis. We will give him 2 L of lactated Ringer's now over 2 hours and start him on maintenance IV fluids with 250 mL an hour of lactated Ringer's. Zofran as needed for nausea. Dilaudid as needed for pain control. N.p.o. for time being. Will order an ultrasound of the abdomen in the morning to assess for cholelithiasis or choledocholithiasis although this is felt to be less likely at this time. Trend lipase and amylase. Qualifiers: Acute pancreatitis complication: unspecified Qualified Code(s): K85.20 - Alcohol induced acute pancreatitis without necrosis or infection (2) Lactic acidosis Conclusion/Plan: Suspect this is likely related to pancreatitis and poor liver clearance. He does not appear to be septic at this time. We will give him lactated Ringer's as mentioned above. We will trend his lactic every 3 hours. No indication for antibiotics at this time. (3) Alcoholic hepatitis Conclusion/Plan: His LFTs are elevated which is likely due to alcoholic hepatitis. He has chronic transaminitis but it is worse today. CT showed no evidence of ductal dilatation. There was evidence of hepatic steatosis. We will check an INR followed by discriminant function score but I doubt he will be a candidate for prednisone. We will trend his LFTs and he has been counseled on the importance of alcohol cessation. Qualifiers: Ascites presence: without ascites Qualified Code(s): K70.10 - Alcoholic hepatitis without ascites (4) Alcohol abuse Conclusion/Plan: This is the cause of his acute pancreatitis. His EtOH level is just less than 58. We will monitor him for evidence of withdrawal. He will be placed on CIWA protocol with Ativan as needed. He will be started on thiamine IV. He was counseled on the importance of alcohol cessation and social work will be consulted to help provide him with resources. (5) Tremor Conclusion/Plan: He is a tremor at baseline and he feels like he is more tremulous due to the pancreatitis. Given his alcohol use, this could be evidence of withdrawal we will monitor this closely with CIWA and Ativan as needed. (6) Hydronephrosis of right kidney Conclusion/Plan: This once again remains evident on CT the abdomen pelvis and is stable compared to prior imaging from last year. No evidence of obvious mass or obstruction. He has been following with urology [facility] and will continue to do so once discharged. (7) Hypertension Conclusion/Plan: He is currently hypertensive with systolics in the 140s. We will resume his home amlodipine and metoprolol once he is able to take p.o. Will consider IV labetalol if necessary. (8) Psoriasis Conclusion/Plan: He will continue Cosentyx on outpatient basis. - Lab Results Lab results reviewed: Yes Fish Bones: 04/20/21 18:35 04/20/21 18:17 - Diagnostic Imaging Results Diagnostic Imaging Results: positive: Final report reviewed Core Measures - Anticipated LOS I expect patient to be DC'd or transferred within 96 hours.: Yes - Issues Hospital Issues and Management Plan: 40-year-old male with history of alcohol abuse found to have acute alcoholic pancreatitis and lactic acidosis. He will be admitted to the ICU for further management with IV fluids, pain control. Will order an ultrasound of the abdomen in the morning. - DVT/VTE - Prophylaxis VTE/DVT Device ordered at admit?: Yes VTE/DVT Prophylaxis med ordered at admit?: Yes
[2021-04-20 20:47] LABS: VBG BASE EXCESS -5.7 mmol/L (-2 - +2); VBG HCO3 18.7 mmol/L (23-28); VBG PCO2 33.5 mmHg (41-51); VBG PH 7.364 (7.31-7.41); VBG PO2 83.7 mmHg (25-47); VBG TOTAL CO2 19.7 mmol/L (24-29)
[2021-04-20 20:54] LABS: INR 1.2 (0.8-1.2); PT - PROTHROMBIN TIME 13.6 secs (9.9-12.6)
[2021-04-20 20:56] LABS: CORONAVIRUS 229E-RESP PCR NOT DETECTED; CORONAVIRUS HKU1-RESP PCR NOT DETECTED; CORONAVIRUS NL63-RESP PCR NOT DETECTED; CORONAVIRUS OC43-RESP PCR NOT DETECTED; HUMAN METAPNEUMOVIRUS NOT DETECTED; INFLUENZA A- RESP PCR PANEL NOT DETECTED; RHINOVIRUS/ENTEROVIRUS NOT DETECTED; SARS-CoV-2 -RESP PCR PANEL NOT DETECTED
[2021-04-20 20:57] LABS: B. PARAPERTUSSIS- RESP PCR PAN NOT DETECTED; B. PERTUSSIS- RESP PCR PANEL NOT DETECTED; C. PNEUMONIAE- RESP PCR PANEL NOT DETECTED; INFLUENZA B - RESP PCR PANEL NOT DETECTED; M. PNEUMONIAE- RESP PCR PANEL NOT DETECTED; PARAINFLUENZA VIRUS 1 NOT DETECTED; PARAINFLUENZA VIRUS 2 NOT DETECTED; PARAINFLUENZA VIRUS 3 NOT DETECTED; PARAINFLUENZA VIRUS 4 NOT DETECTED; RSV- RESP PCR PANEL NOT DETECTED
[2021-04-20 21:17] LABS: CHOLESTEROL 157 mg/dL; HDL CHOLESTEROL 26 mg/dL; LDL CHOLESTEROL,CALCULATED 113 mg/dL; LDL/HDL RATIO 4.3 (<3.6); TRIGLYCERIDES 90 mg/dL; VLDL CHOLESTEROL 18 mg/dL
[2021-04-20] MEDS: HYDROmorphone 0.5 MG/0.5 ML SYRINGE IVP PRN (21:58)
[2021-04-20] MEDS: SODIUM CHLORIDE FLUSH 0.9% 10 ML SYRINGE IVP SCH (22:00)
[2021-04-20] MEDS: LORazepam 2 MG/ML VIAL IVP PRN (22:27)
[2021-04-20] MEDS: LACTATED RINGERS 1,000 ML IV SCH (22:28)
[2021-04-21] MEDS: HYDROmorphone 0.5 MG/0.5 ML SYRINGE IVP PRN ×2 (00:12→02:35)
[2021-04-21] MEDS ORDERED: LACTATED RINGERS 1,000 ML IV ONE (01:20)
[2021-04-21] MEDS: LACTATED RINGERS 1,000 ML IV SCH ×6 (02:22→22:42)
[2021-04-21] MEDS: LORazepam 2 MG/ML VIAL IVP PRN ×2 (02:36→22:24)
[2021-04-21 04:35] LABS: CALCIUM, IONIZED 1.08 mmol/L (1.15-1.33); VBG PH 7.363 (7.31-7.41)
[2021-04-21 04:36] LABS: BASOPHILS % (AUTO) 0.5 %; EOSINOPHILS % (AUTO) 2.1 %; HGB - HEMOGLOBIN 12.8 g/dL (14.0-18.0); LYMPHOCYTES % (AUTO) 2.7 %; MEAN CORPUSCULAR HEMOGLOBIN 33.8 pg (27.0-31.0); MEAN CORPUSCULAR HGB CONC 35.6 g/dL (32.0-36.0); MEAN PLATELET VOLUME 10.3 fL (7.4-11.4); MONOCYTES % (AUTO) 9.9 %; NEUTROPHILS % (AUTO) 84.3 %; PLT - PLATELET COUNT 121 10^3/uL (130-450); RED BLOOD COUNT 3.79 10^6/uL (4.70-6.10); RED CELL DISTRIBUTION WIDTH 16.5 % (12.0-15.0); WHITE BLOOD COUNT 8.5 x10^3/uL (4.8-10.8)
[2021-04-21 04:38] LABS: ABNORMAL LYMPHS % (MANUAL) 0 %; BAND NEUTROPHILS % (MANUAL) 0 %
[2021-04-21 04:55] LABS: DIFFERENTIAL COMMENT MANUAL DIFFERENTIAL; LYMPHOCYTES # (MANUAL) 0.2 10^3/uL (1.5-3.5); LYMPHOCYTES % (MANUAL) 2 %; NEUTROPHILS # (MANUAL) 7.3 10^3/uL (1.5-6.6); PLATELET ESTIMATE, MANUAL DECREASED (<130,000) (NORMAL); PLATELET MORPHOLOGY NORMAL APPEARANCE (NORMAL); RBC MORPHOLOGY (MULTIPLE) NORMAL APPEARANCE (NORMAL); WBC MORPHOLOGY (MULTIPLE) NORMAL APPEARANCE (NORMAL)
[2021-04-21 05:06] LABS: BILIRUBIN,TOTAL 5.3 mg/dL (0.2-1.0); MAGNESIUM 2.6 mg/dL (1.7-2.8); PHOSPHORUS 3.5 mg/dL (2.5-4.6); TOTAL PROTEIN 6.6 g/dL (6.7-8.2)
[2021-04-21 05:07] LABS: ALBUMIN 3.2 g/dL (3.2-5.5); CALCIUM 8.5 mg/dL (8.5-10.3); POTASSIUM 5.3 mmol/L (3.5-5.0)
[2021-04-21 05:09] LABS: CREATININE 0.7 mg/dL (0.6-1.2)
[2021-04-21] MEDS: ONDANSETRON 4 MG/2 ML VIAL IVP PRN ×2 (08:00→22:24)
[2021-04-21] MEDS: HYDROmorphone 1 MG/ML CARPUJECT IVP PRN ×6 (08:15→22:24)
--- NOTE | 2021-04-21 08:20 | PROVIDER PROGRESS NOTE ---
Subjective - Prog Note Date Prog Note Date: 04/21/21 Prog Note Time: 11:30 - Subjective Pt reports feeling: Improved Subjective: Patient reports that he is feeling better today. His pain and nausea are controlled. He had one episode of dry heaving but otherwise denies vomiting this morning. He just stood to urinate and nurse reports that it was dark/tea colored. Patient denies pain with urination. He denies shortness of breath or chest pain however deep breaths exacerbate his abdominal pain. He does not presently have an appetite. Current Medications - Current Medications Current Medications: Active Medications Enoxaparin Sodium (Enoxaparin 40 Mg/0.4 Ml Syringe) 40 mg SUBQ DAILY [facility] Last Admin: 04/21/21 09:05 Dose: 40 mg Hydromorphone HCl (Hydromorphone 1 Mg/Ml Carpuject) 1 mg IVP Q2H PRN PRN Reason: pain 8 to 10 Last Admin: 04/21/21 08:15 Dose: 1 mg Lactated Ringer's (Lr) 1,000 mls @ 200 mls/hr IV .Q5H [facility] Last Infusion: 04/21/21 10:00 Dose: 200 mls/hr Thiamine HCl 100 mg/ Sodium (Chloride) 51 mls @ 100 mls/hr IV DAILY [facility] Last Infusion: 04/21/21 09:35 Dose: Infused Lorazepam (Lorazepam 2 Mg/Ml Vial) 1 mg IVP Q2H PRN PRN Reason: Alcohol Withdrawal Last Admin: 04/21/21 02:36 Dose: 1 mg Ondansetron HCl (Ondansetron Odt 4 Mg Tablet) 4 mg TL Q6HR PRN PRN Reason: Nausea / Vomiting Ondansetron HCl (Ondansetron 4 Mg/2 Ml Vial) 4 mg IVP Q6HR PRN PRN Reason: Nausea / Vomiting Last Admin: 04/21/21 08:00 Dose: 4 mg Sodium Chloride (Sodium Chloride Flush 0.9% 10 Ml Syringe) 10 ml IVP 0 100,0900,1700 [facility] Last Admin: 04/21/21 09:00 Dose: 10 ml Sodium Chloride (Sodium Chloride Flush 0.9% 10 Ml Syringe) 10 ml IVP PRN PRN PRN Reason: NEEDED PER PROVIDER ORDERS Secukinumab [Cosentyx (2 Syringes)] 150 mg SUBQ Q28D 10/05/20 Amlodipine Besylate/Benazepril [Amlodipine-Benazepril 5-20 mg] 1 cap PO DAILY 04/21/21 Objective - Vital Signs/Intake & Output Reviewed Vital Signs: Yes Vital Signs: Vital Signs Temp Pulse Resp BP Pulse Ox 04/21/21 08:00 36.5 C 119 H 20 155/116 H 93 04/21/21 07:00 115 H 13 151/109 H 96 04/21/21 06:00 116 H 17 150/115 H 94 04/21/21 05:00 120 H 16 149/108 H 97 Intake & Output: Intake & Output 04/18/21 04/19/21 04/20/21 04/21/21 23:59 23:59 23:59 23:59 Intake Total 3400.533 3313.667 Output Total 175 200 Balance 3225.533 3113.667 - Objective General Appearance: positive: No acute distress, Alert Eyes Bilateral: positive: Normal inspection, No scleral icterus ENT: positive: ENT inspection nml, No signs of dehydration Neck: positive: Nml inspection Respiratory: positive: Chest non-tender, No respiratory distress, Other (Breath sounds diminished in bilateral lower lobes. Nasal cannula.). negative: Rales Cardiovascular: positive: No murmur, No gallop, Tachycardia. negative: Irregularly irregular Abdomen: positive: Nml bowel sounds, Tenderness (Epigastric), Other (mild distention). negative: No distention, Guarding, Rebound Back: positive: Nml inspection. negative: CVA tenderness (R), CVA tenderness (L) Skin: positive: Diaphoresis, Pallor, Other (Approx 4 cm spot of ecchymosis on left lower abdominal quadrant, site of Lovanox injection) Extremities: positive: Nml appearance, No pedal edema Neurologic/Psychiatric: positive: Oriented x3, Other (Tremor at rest in upper extremities) - Lab Results Fish Bones: 04/21/21 04:13 04/21/21 11:08 Other Labs: Lab Results x24hrs 04/21/21 04/21/21 04/21/21 Range/Units 04:13 04:13 04:13 WBC (4.8-10.8) x10^3/uL RBC (4.70-6.10) 10^6/uL Hgb (14.0-18.0) g/dL Hct (42.0-52.0) % MCV (80.0-94.0) fL MCH (27.0-31.0) pg MCHC (32.0-36.0) g/dL RDW (12.0-15.0) % Plt Count (130-450) 10^3/uL MPV (7.4-11.4) fL Neut # (Auto) (1.5-6.6) 10^3/uL Lymph # (Auto) (1.5-3.5) 10^3/uL [place] # (Auto) (0.0-1.0) 10^3/uL Eos # (Auto) (0.0-0.7) 10^3/uL Baso # (Auto) (0.0-0.1) 10^3/uL Absolute Nucleated RBC x10^3/uL Total Counted Band Neuts % (Manual) (0 - 10) % Abnorm Lymph % (Manual) % Nucleated RBC % /100WBC Neutrophils # (Manual) (1.5-6.6) 10^3/uL Lymphocytes # (Manual) (1.5-3.5) 10^3/uL Monocytes # (Manual) (0.0-1.0) 10^3/uL Eosinophils # (Manual) (0-0.7) 10^3/uL Basophils # (Manual) (0-0.1) 10^3/uL Differential Comment WBC Morphology (NORMAL) Platelet Estimate (NORMAL) Platelet Morphology (NORMAL) RBC Morph Micro Appear (NORMAL) PT (9.9-12.6) secs INR (0.8-1.2) VBG pH 7.363 (7.31-7.41) VBG pCO2 (41-51) mmHg VBG pO2 (25-47) mmHg VBG HCO3 (23-28) mmol/L VBG Total CO2 (24-29) mmol/L VBG O2 Saturation (60-80) % VBG Base Excess (-2 - +2) mmol/L Ionized Calcium 1.08 L (1.15-1.33) mmol/L Sodium 132 L (135-145) mmol/L Potassium 5.3 H (3.5-5.0) mmol/L Chloride 97 L (101-111) mmol/L Carbon Dioxide 23 (21-32) mmol/L Anion Gap 12.0 (6-13) BUN 12 (6-20) mg/dL Creatinine 0.7 (0.6-1.2) mg/dL Estimated GFR (MDRD) 126 (>89) Glucose 110 H (70-100) mg/dL Lactic Acid 2.4 H (0.5-2.2) mmol/L Calcium 8.5 (8.5-10.3) mg/dL Phosphorus 3.5 (2.5-4.6) mg/dL Magnesium 2.6 (1.7-2.8) mg/dL Total Bilirubin 5.3 H (0.2-1.0) mg/dL Direct Bilirubin 3.0 H (0.1-0.5) mg/dL AST 318 H (10-42) IU/L ALT 103 H (10-60) IU/L Alkaline Phosphatase 179 H (42-121) IU/L Total Protein 6.6 L (6.7-8.2) g/dL Albumin 3.2 (3.2-5.5) g/dL Globulin 3.4 (2.1-4.2) g/dL Albumin/Globulin Ratio (1.0-2.2) Triglycerides ( - 149) mg/dL Cholesterol ( - 199) mg/dL LDL Cholesterol, Calc ( - 129) mg/dL VLDL Cholesterol mg/dL HDL Cholesterol (60 - ) mg/dL LDL/HDL Ratio (<3.6) Cholesterol/HDL Ratio (<5.0) Amylase 491 H* (28-100) U/L Lipase 1608 H (22-51) U/L Nasal Adenovirus (PCR) Nasal B. parapertussis DNA (PCR) Nasal Coronavir 229E PCR Nasal Coronavir HKU1 PCR Nasal Coronavir NL63 PCR Nasal Coronavir OC43 PCR Nasal Enterovir/Rhinovir PCR Nasal Influenza B PCR Nasal Influenza A PCR Nasal Parainfluen 1 PCR Nasal Parainfluen 2 PCR Nasal Parainfluen 3 PCR Nasal Parainfluen 4 PCR Nasal RSV (PCR) Nasal Screen MRSA (PCR) (NEGATIVE) Nasal B.pertussis DNA PCR Nasal C.pneumoniae (PCR) Leon Human Metapneumo PCR Nasal M.pneumoniae (PCR) Nasal SARS-CoV-2 (PCR) Ethyl Alcohol mg/dL Serum Ketones (NEGATIVE) 04/21/21 04/21/21 04/20/21 Range/Units 04:13 00:04 22:04 WBC 8.5 (4.8-10.8) x10^3/uL RBC 3.79 L (4.70-6.10) 10^6/uL Hgb 12.8 L (14.0-18.0) g/dL Hct 36.0 L (42.0-52.0) % MCV 95.0 H (80.0-94.0) fL MCH 33.8 H (27.0-31.0) pg MCHC 35.6 (32.0-36.0) g/dL RDW 16.5 H (12.0-15.0) % Plt Count 121 L (130-450) 10^3/uL MPV 10.3 (7.4-11.4) fL Neut # (Auto) Not Reportable (1.5-6.6) 10^3/uL Lymph # (Auto) Not Reportable (1.5-3.5) 10^3/uL [place] # (Auto) Not Reportable (0.0-1.0) 10^3/uL Eos # (Auto) Not Reportable (0.0-0.7) 10^3/uL Baso # (Auto) Not Reportable (0.0-0.1) 10^3/uL Absolute Nucleated RBC Not Reportable x10^3/uL Total Counted 100 Band Neuts % (Manual) 0 (0 - 10) % Abnorm Lymph % (Manual) 0 % Nucleated RBC % Not Reportable /100WBC Neutrophils # (Manual) 7.3 H (1.5-6.6) 10^3/uL Lymphocytes # (Manual) 0.2 L (1.5-3.5) 10^3/uL Monocytes # (Manual) 1.0 (0.0-1.0) 10^3/uL Eosinophils # (Manual) 0.0 (0-0.7) 10^3/uL Basophils # (Manual) 0.0 (0-0.1) 10^3/uL Differential Comment MANUAL DIFFERENTIAL WBC Morphology NORMAL APPEARANCE (NORMAL) Platelet Estimate DECREASED (<130,000) (NORMAL) Platelet Morphology NORMAL APPEARANCE (NORMAL) RBC Morph Micro Appear NORMAL APPEARANCE (NORMAL) PT (9.9-12.6) secs INR (0.8-1.2) VBG pH (7.31-7.41) VBG pCO2 (41-51) mmHg VBG pO2 (25-47) mmHg VBG HCO3 (23-28) mmol/L VBG Total CO2 (24-29) mmol/L VBG O2 Saturation (60-80) % VBG Base Excess (-2 - +2) mmol/L Ionized Calcium (1.15-1.33) mmol/L Sodium (135-145) mmol/L Potassium (3.5-5.0) mmol/L Chloride (101-111) mmol/L Carbon Dioxide (21-32) mmol/L Anion Gap (6-13) BUN (6-20) mg/dL Creatinine (0.6-1.2) mg/dL Estimated GFR (MDRD) (>89) Glucose (70-100) mg/dL Lactic Acid 5.1 H* 5.6 H* (0.5-2.2) mmol/L Calcium (8.5-10.3) mg/dL Phosphorus (2.5-4.6) mg/dL Magnesium (1.7-2.8) mg/dL Total Bilirubin (0.2-1.0) mg/dL Direct Bilirubin (0.1-0.5) mg/dL AST (10-42) IU/L ALT (10-60) IU/L Alkaline Phosphatase (42-121) IU/L Total Protein (6.7-8.2) g/dL Albumin (3.2-5.5) g/dL Globulin (2.1-4.2) g/dL Albumin/Globulin Ratio (1.0-2.2) Triglycerides ( - 149) mg/dL Cholesterol ( - 199) mg/dL LDL Cholesterol, Calc ( - 129) mg/dL VLDL Cholesterol mg/dL HDL Cholesterol (60 - ) mg/dL LDL/HDL Ratio (<3.6) Cholesterol/HDL Ratio (<5.0) Amylase (28-100) U/L Lipase (22-51) U/L Nasal Adenovirus (PCR) Nasal B. parapertussis DNA (PCR) Nasal Coronavir 229E PCR Nasal Coronavir HKU1 PCR Nasal Coronavir NL63 PCR Nasal Coronavir OC43 PCR Nasal Enterovir/Rhinovir PCR Nasal Influenza B PCR Nasal Influenza A PCR Nasal Parainfluen 1 PCR Nasal Parainfluen 2 PCR Nasal Parainfluen 3 PCR Nasal Parainfluen 4 PCR Nasal RSV (PCR) Nasal Screen MRSA (PCR) (NEGATIVE) Nasal B.pertussis DNA PCR Nasal C.pneumoniae (PCR) [place] Human Metapneumo PCR Nasal M.pneumoniae (PCR) Nasal SARS-CoV-2 (PCR) Ethyl Alcohol mg/dL Serum Ketones (NEGATIVE) 04/20/21 04/20/21 04/20/21 Range/Units 21:50 20:37 20:37 WBC (4.8-10.8) x10^3/uL RBC (4.70-6.10) 10^6/uL Hgb (14.0-18.0) g/dL Hct (42.0-52.0) % MCV (80.0-94.0) fL MCH (27.0-31.0) pg MCHC (32.0-36.0) g/dL RDW (12.0-15.0) % Plt Count (130-450) 10^3/uL MPV (7.4-11.4) fL Neut # (Auto) (1.5-6.6) 10^3/uL Lymph # (Auto) (1.5-3.5) 10^3/uL [place] # (Auto) (0.0-1.0) 10^3/uL Eos # (Auto) (0.0-0.7) 10^3/uL Baso # (Auto) (0.0-0.1) 10^3/uL Absolute Nucleated RBC x10^3/uL Total Counted Band Neuts % (Manual) (0 - 10) % Abnorm Lymph % (Manual) % Nucleated RBC % /100WBC Neutrophils # (Manual) (1.5-6.6) 10^3/uL Lymphocytes # (Manual) (1.5-3.5) 10^3/uL Monocytes # (Manual) (0.0-1.0) 10^3/uL Eosinophils # (Manual) (0-0.7) 10^3/uL Basophils # (Manual) (0-0.1) 10^3/uL Differential Comment WBC Morphology (NORMAL) Platelet Estimate (NORMAL) Platelet Morphology (NORMAL) RBC Morph Micro Appear (NORMAL) PT (9.9-12.6) secs INR (0.8-1.2) VBG pH 7.364 (7.31-7.41) VBG pCO2 33.5 L (41-51) mmHg VBG pO2 83.7 H (25-47) mmHg VBG HCO3 18.7 L (23-28) mmol/L VBG Total CO2 19.7 L (24-29) mmol/L VBG O2 Saturation 96.0 H (60-80) % VBG Base Excess -5.7 L (-2 - +2) mmol/L Ionized Calcium (1.15-1.33) mmol/L Sodium (135-145) mmol/L Potassium (3.5-5.0) mmol/L Chloride (101-111) mmol/L Carbon Dioxide (21-32) mmol/L Anion Gap (6-13) BUN (6-20) mg/dL Creatinine (0.6-1.2) mg/dL Estimated GFR (MDRD) (>89) Glucose (70-100) mg/dL Lactic Acid (0.5-2.2) mmol/L Calcium (8.5-10.3) mg/dL Phosphorus (2.5-4.6) mg/dL Magnesium (1.7-2.8) mg/dL Total Bilirubin (0.2-1.0) mg/dL Direct Bilirubin (0.1-0.5) mg/dL AST (10-42) IU/L ALT (10-60) IU/L Alkaline Phosphatase (42-121) IU/L Total Protein (6.7-8.2) g/dL Albumin (3.2-5.5) g/dL Globulin (2.1-4.2) g/dL Albumin/Globulin Ratio (1.0-2.2) Triglycerides 90 ( - 149) mg/dL Cholesterol 157 ( - 199) mg/dL LDL Cholesterol, Calc 113 ( - 129) mg/dL VLDL Cholesterol 18 mg/dL HDL Cholesterol 26 L (60 - ) mg/dL LDL/HDL Ratio 4.3 (<3.6) Cholesterol/HDL Ratio 6.0 (<5.0) Amylase (28-100) U/L Lipase (22-51) U/L Nasal Adenovirus (PCR) Nasal B. parapertussis DNA (PCR) Nasal Coronavir 229E PCR Nasal Coronavir HKU1 PCR Nasal Coronavir NL63 PCR Nasal Coronavir OC43 PCR Nasal Enterovir/Rhinovir PCR Nasal Influenza B PCR Nasal Influenza A PCR Nasal Parainfluen 1 PCR Nasal Parainfluen 2 PCR Nasal Parainfluen 3 PCR Nasal Parainfluen 4 PCR Nasal RSV (PCR) Nasal Screen MRSA (PCR) NEGATIVE (NEGATIVE) Nasal B.pertussis DNA PCR Nasal C.pneumoniae (PCR) [place] Human Metapneumo PCR Nasal M.pneumoniae (PCR) Nasal SARS-CoV-2 (PCR) Ethyl Alcohol mg/dL Serum Ketones (NEGATIVE) 04/20/21 04/20/21 04/20/21 Range/Units 20:37 20:37 20:37 WBC (4.8-10.8) x10^3/uL RBC (4.70-6.10) 10^6/uL Hgb (14.0-18.0) g/dL Hct (42.0-52.0) % MCV (80.0-94.0) fL MCH (27.0-31.0) pg MCHC (32.0-36.0) g/dL RDW (12.0-15.0) % Plt Count (130-450) 10^3/uL MPV (7.4-11.4) fL Neut # (Auto) (1.5-6.6) 10^3/uL Lymph # (Auto) (1.5-3.5) 10^3/uL [place] # (Auto) (0.0-1.0) 10^3/uL Eos # (Auto) (0.0-0.7) 10^3/uL Baso # (Auto) (0.0-0.1) 10^3/uL Absolute Nucleated RBC x10^3/uL Total Counted Band Neuts % (Manual) (0 - 10) % Abnorm Lymph % (Manual) % Nucleated RBC % /100WBC Neutrophils # (Manual) (1.5-6.6) 10^3/uL Lymphocytes # (Manual) (1.5-3.5) 10^3/uL Monocytes # (Manual) (0.0-1.0) 10^3/uL Eosinophils # (Manual) (0-0.7) 10^3/uL Basophils # (Manual) (0-0.1) 10^3/uL Differential Comment WBC Morphology (NORMAL) Platelet Estimate (NORMAL) Platelet Morphology (NORMAL) RBC Morph Micro Appear (NORMAL) PT 13.6 H (9.9-12.6) secs INR 1.2 (0.8-1.2) VBG pH (7.31-7.41) VBG pCO2 (41-51) mmHg VBG pO2 (25-47) mmHg VBG HCO3 (23-28) mmol/L VBG Total CO2 (24-29) mmol/L VBG O2 Saturation (60-80) % VBG Base Excess (-2 - +2) mmol/L Ionized Calcium (1.15-1.33) mmol/L Sodium (135-145) mmol/L Potassium (3.5-5.0) mmol/L Chloride (101-111) mmol/L Carbon Dioxide (21-32) mmol/L Anion Gap (6-13) BUN (6-20) mg/dL Creatinine (0.6-1.2) mg/dL Estimated GFR (MDRD) (>89) Glucose (70-100) mg/dL Lactic Acid (0.5-2.2) mmol/L Calcium (8.5-10.3) mg/dL Phosphorus 4.1 (2.5-4.6) mg/dL Magnesium 2.5 (1.7-2.8) mg/dL Total Bilirubin (0.2-1.0) mg/dL Direct Bilirubin (0.1-0.5) mg/dL AST (10-42) IU/L ALT (10-60) IU/L Alkaline Phosphatase (42-121) IU/L Total Protein (6.7-8.2) g/dL Albumin (3.2-5.5) g/dL Globulin (2.1-4.2) g/dL Albumin/Globulin Ratio (1.0-2.2) Triglycerides ( - 149) mg/dL Cholesterol ( - 199) mg/dL LDL Cholesterol, Calc ( - 129) mg/dL VLDL Cholesterol mg/dL HDL Cholesterol (60 - ) mg/dL LDL/HDL Ratio (<3.6) Cholesterol/HDL Ratio (<5.0) Amylase (28-100) U/L Lipase (22-51) U/L Nasal Adenovirus (PCR) Nasal B. parapertussis DNA (PCR) Nasal Coronavir 229E PCR Nasal Coronavir HKU1 PCR Nasal Coronavir NL63 PCR Nasal Coronavir OC43 PCR Nasal Enterovir/Rhinovir PCR Nasal Influenza B PCR Nasal Influenza A PCR Nasal Parainfluen 1 PCR Nasal Parainfluen 2 PCR Nasal Parainfluen 3 PCR Nasal Parainfluen 4 PCR Nasal RSV (PCR) Nasal Screen MRSA (PCR) (NEGATIVE) Nasal B.pertussis DNA PCR Nasal C.pneumoniae (PCR) [place] Human Metapneumo PCR Nasal M.pneumoniae (PCR) Nasal SARS-CoV-2 (PCR) Ethyl Alcohol mg/dL Serum Ketones (NEGATIVE) 04/20/21 04/20/21 04/20/21 Range/Units 19:52 19:52 19:50 WBC (4.8-10.8) x10^3/uL RBC (4.70-6.10) 10^6/uL Hgb (14.0-18.0) g/dL Hct (42.0-52.0) % MCV (80.0-94.0) fL MCH (27.0-31.0) pg MCHC (32.0-36.0) g/dL RDW (12.0-15.0) % Plt Count (130-450) 10^3/uL MPV (7.4-11.4) fL Neut # (Auto) (1.5-6.6) 10^3/uL Lymph # (Auto) (1.5-3.5) 10^3/uL [place] # (Auto) (0.0-1.0) 10^3/uL Eos # (Auto) (0.0-0.7) 10^3/uL Baso # (Auto) (0.0-0.1) 10^3/uL Absolute Nucleated RBC x10^3/uL Total Counted Band Neuts % (Manual) (0 - 10) % Abnorm Lymph % (Manual) % Nucleated RBC % /100WBC Neutrophils # (Manual) (1.5-6.6) 10^3/uL Lymphocytes # (Manual) (1.5-3.5) 10^3/uL Monocytes # (Manual) (0.0-1.0) 10^3/uL Eosinophils # (Manual) (0-0.7) 10^3/uL Basophils # (Manual) (0-0.1) 10^3/uL Differential Comment WBC Morphology (NORMAL) Platelet Estimate (NORMAL) Platelet Morphology (NORMAL) RBC Morph Micro Appear (NORMAL) PT (9.9-12.6) secs INR (0.8-1.2) VBG pH (7.31-7.41) VBG pCO2 (41-51) mmHg VBG pO2 (25-47) mmHg VBG HCO3 (23-28) mmol/L VBG Total CO2 (24-29) mmol/L VBG O2 Saturation (60-80) % VBG Base Excess (-2 - +2) mmol/L Ionized Calcium (1.15-1.33) mmol/L Sodium (135-145) mmol/L Potassium (3.5-5.0) mmol/L Chloride (101-111) mmol/L Carbon Dioxide (21-32) mmol/L Anion Gap (6-13) BUN (6-20) mg/dL Creatinine (0.6-1.2) mg/dL Estimated GFR (MDRD) (>89) Glucose (70-100) mg/dL Lactic Acid 7.9 H* (0.5-2.2) mmol/L Calcium (8.5-10.3) mg/dL Phosphorus (2.5-4.6) mg/dL Magnesium (1.7-2.8) mg/dL Total Bilirubin (0.2-1.0) mg/dL Direct Bilirubin (0.1-0.5) mg/dL AST (10-42) IU/L ALT (10-60) IU/L Alkaline Phosphatase (42-121) IU/L Total Protein (6.7-8.2) g/dL Albumin (3.2-5.5) g/dL Globulin (2.1-4.2) g/dL Albumin/Globulin Ratio (1.0-2.2) Triglycerides ( - 149) mg/dL Cholesterol ( - 199) mg/dL LDL Cholesterol, Calc ( - 129) mg/dL VLDL Cholesterol mg/dL HDL Cholesterol (60 - ) mg/dL LDL/HDL Ratio (<3.6) Cholesterol/HDL Ratio (<5.0) Amylase (28-100) U/L Lipase (22-51) U/L Nasal Adenovirus (PCR) NOT DETECTED Nasal B. parapertussis DNA (PCR) NOT DETECTED Nasal Coronavir 229E PCR NOT DETECTED Nasal Coronavir HKU1 PCR NOT DETECTED Nasal Coronavir NL63 PCR NOT DETECTED Nasal Coronavir OC43 PCR NOT DETECTED Nasal Enterovir/Rhinovir PCR NOT DETECTED Nasal Influenza B PCR NOT DETECTED Nasal Influenza A PCR NOT DETECTED Nasal Parainfluen 1 PCR NOT DETECTED Nasal Parainfluen 2 PCR NOT DETECTED Nasal Parainfluen 3 PCR NOT DETECTED Nasal Parainfluen 4 PCR NOT DETECTED Nasal RSV (PCR) NOT DETECTED Nasal Screen MRSA (PCR) (NEGATIVE) Nasal B.pertussis DNA PCR NOT DETECTED Nasal C.pneumoniae (PCR) NOT DETECTED [place] Human Metapneumo PCR NOT DETECTED Nasal M.pneumoniae (PCR) NOT DETECTED Nasal SARS-CoV-2 (PCR) NOT DETECTED Ethyl Alcohol mg/dL Serum Ketones NEGATIVE (NEGATIVE) 04/20/21 04/20/21 Range/Units 18:35 18:17 WBC 8.1 (4.8-10.8) x10^3/uL RBC 3.96 L (4.70-6.10) 10^6/uL Hgb 13.2 L (14.0-18.0) g/dL Hct 37.8 L (42.0-52.0) % MCV 95.5 H (80.0-94.0) fL MCH 33.3 H (27.0-31.0) pg MCHC 34.9 (32.0-36.0) g/dL RDW 16.1 H (12.0-15.0) % Plt Count 120 L (130-450) 10^3/uL MPV 11.0 (7.4-11.4) fL Neut # (Auto) 7.1 H (1.5-6.6) 10^3/uL Lymph # (Auto) 0.1 L (1.5-3.5) 10^3/uL [place] # (Auto) 0.6 (0.0-1.0) 10^3/uL Eos # (Auto) 0.2 (0.0-0.7) 10^3/uL Baso # (Auto) 0.0 (0.0-0.1) 10^3/uL Absolute Nucleated RBC 0.00 x10^3/uL Total Counted Band Neuts % (Manual) (0 - 10) % Abnorm Lymph % (Manual) % Nucleated RBC % 0.0 /100WBC Neutrophils # (Manual) (1.5-6.6) 10^3/uL Lymphocytes # (Manual) (1.5-3.5) 10^3/uL Monocytes # (Manual) (0.0-1.0) 10^3/uL Eosinophils # (Manual) (0-0.7) 10^3/uL Basophils # (Manual) (0-0.1) 10^3/uL Differential Comment WBC Morphology (NORMAL) Platelet Estimate (NORMAL) Platelet Morphology (NORMAL) RBC Morph Micro Appear (NORMAL) PT (9.9-12.6) secs INR (0.8-1.2) VBG pH (7.31-7.41) VBG pCO2 (41-51) mmHg VBG pO2 (25-47) mmHg VBG HCO3 (23-28) mmol/L VBG Total CO2 (24-29) mmol/L VBG O2 Saturation (60-80) % VBG Base Excess (-2 - +2) mmol/L Ionized Calcium (1.15-1.33) mmol/L Sodium 132 L (135-145) mmol/L Potassium 4.0 (3.5-5.0) mmol/L Chloride 90 L (101-111) mmol/L Carbon Dioxide 16 L (21-32) mmol/L Anion Gap 26.0 H (6-13) BUN 11 (6-20) mg/dL Creatinine 0.9 (0.6-1.2) mg/dL Estimated GFR (MDRD) 94 (>89) Glucose 154 H (70-100) mg/dL Lactic Acid (0.5-2.2) mmol/L Calcium 8.6 (8.5-10.3) mg/dL Phosphorus (2.5-4.6) mg/dL Magnesium (1.7-2.8) mg/dL Total Bilirubin 4.7 H (0.2-1.0) mg/dL Direct Bilirubin (0.1-0.5) mg/dL AST 366 H (10-42) IU/L ALT 118 H (10-60) IU/L Alkaline Phosphatase 227 H (42-121) IU/L Total Protein 7.2 (6.7-8.2) g/dL Albumin 3.5 (3.2-5.5) g/dL Globulin 3.7 (2.1-4.2) g/dL Albumin/Globulin Ratio 0.9 L (1.0-2.2) Triglycerides ( - 149) mg/dL Cholesterol ( - 199) mg/dL LDL Cholesterol, Calc ( - 129) mg/dL VLDL Cholesterol mg/dL HDL Cholesterol (60 - ) mg/dL LDL/HDL Ratio (<3.6) Cholesterol/HDL Ratio (<5.0) Amylase (28-100) U/L Lipase 2556 H (22-51) U/L Nasal Adenovirus (PCR) Nasal B. parapertussis DNA (PCR) Nasal Coronavir 229E PCR Nasal Coronavir HKU1 PCR Nasal Coronavir NL63 PCR Nasal Coronavir OC43 PCR Nasal Enterovir/Rhinovir PCR Nasal Influenza B PCR Nasal Influenza A PCR Nasal Parainfluen 1 PCR Nasal Parainfluen 2 PCR Nasal Parainfluen 3 PCR Nasal Parainfluen 4 PCR Nasal RSV (PCR) Nasal Screen MRSA (PCR) (NEGATIVE) Nasal B.pertussis DNA PCR Nasal C.pneumoniae (PCR) Leon Human Metapneumo PCR Nasal M.pneumoniae (PCR) Nasal SARS-CoV-2 (PCR) Ethyl Alcohol 45.7 mg/dL Serum Ketones (NEGATIVE) - Diagnostic Imaging Diagnostic Imaging Results: positive: See rad report Sepsis Event Note (H) - Evaluation Current Stage of Sepsis: Ruled out Assessment/Plan - Problem List (1) Acute alcoholic pancreatitis Impression: Patient has a history of chronic alcohol abuse and now presents with acute pancreatitis. Amylase 491, and lipase 1608. LFTs elevated. He also has elevated billirubin and tea colored urine. CT reveals peripancreatic inflammation without fluid collection. No evidence of ductal dilation. Although gallstone induced pancreatitis is less likely we will still obtain an ultrasound today to rule this out. He received 4 units of LR overnight and we will continue maintenance LR at a rate of 200 mL/hr today. He will also continue to take in water PO. Monitor electrolytes. Monitor I/Os. He will remain in the ICU due to lactic acidosis with pancreatitis. HOULTON II score is 4% estimated mortality for non-operative management at this time. Zofran as needed for nausea Dilaudid as needed for pain. Trend lipase, lactate and LFTs NPO except water for pancreas rest. Qualifiers: Acute pancreatitis complication: unspecified Qualified Code(s): K85.20 - Alcohol induced acute pancreatitis without necrosis or infection (2) Lactic acidosis Impression: He presented with an elevated lacate at 7.9 likely secondary to pancreatitis and poor liver clearance. This seems to be resolving today after fluid resuscitation, 2.4 this morning. He does not appear to be septic at this time and there is no indication for antibiotics. We will continue to trend lactate and monitor for signs of sepsis. (3) Alcoholic hepatitis Impression: His LFTs are elevated and he has evidence of hepatic steatosis on CT. He has chronic transaminitis but it was worse upon admission. CT showed no evidence of ductal dilatation. INR normal. We will trend his LFTs and he has been counseled on the importance of alcohol cessation. Qualifiers: Ascites presence: without ascites Qualified Code(s): K70.10 - Alcoholic hepatitis without ascites (4) Alcohol abuse Impression: This is the cause of his acute pancreatitis. His EtOH level was 45.7 upon admission. We will monitor him for evidence of withdrawal. CIWA protocol with Ativan as needed. Continue IV thiamine today He was counseled on the importance of alcohol cessation and social work will be consulted to help provide him with resources. (5) Tremor Impression: He is a tremor at baseline and he feels like he is more tremulous due to the pancreatitis. Given his alcohol use, this could be evidence of withdrawal we will monitor this closely with CIWA and Ativan as needed. (6) Hydronephrosis of right kidney Impression: This once again remains evident on CT the abdomen pelvis and is stable compared to prior imaging from last year. No evidence of obvious mass or obstruction. He has been following with urology [facility] and will continue to do so once discharged. (7) Hypertension Impression: Hypertensive today, last bp 144/109. Resume home amlodipine and metoprolol when he is able to take PO Consider IV labetalol if necessary. (8) Psoriasis Impression: He will continue Cosentyx on outpatient basis.
[2021-04-21] MEDS: THIAMINE INJ 100 MG in SODIUM CHLORIDE 0.9% 50 ML IV SCH (09:00)
[2021-04-21] MEDS: SODIUM CHLORIDE FLUSH 0.9% 10 ML SYRINGE IVP SCH ×2 (09:00→17:00)
[2021-04-21] MEDS ORDERED: THIAMINE INJ 100 MG in SODIUM CHLORIDE 0.9% 50 ML IV SCH (09:00)
[2021-04-21] MEDS: ENOXAPARIN 40 MG/0.4 ML SYRINGE SUBQ SCH (09:05)
--- NOTE | 2021-04-21 09:13 | PHARMACY PROGRESS NOTE ---
- Best Possible Medication History Admit Date and Time: 04/20/212021 Processed by: Pharmacy Medication History completed: Yes Patient Interview: Completed Secondary Source(s): Insurance records As the person ultimately responsible for medication therapy, providers are able to order a medication from an existing home medication list in [facility] via the "Reconcile Routine" prior to Confirmation of that medication by credit support specialist. Such practice is discouraged except when the physician, in their clinical judgment, deems that a medical need exists for a medication without regard to previous use.
[2021-04-21 11:23] LABS: CREATININE 0.9 mg/dL (0.6-1.2); POTASSIUM 4.1 mmol/L (3.5-5.0)
--- NOTE | 2021-04-21 12:33 | Ultrasound Report ---
PROCEDURE: Abdomen Limited INDICATIONS: Pancreatitis. Elevated LFT's. TECHNIQUE: Real-time focused scanning was performed of the abdomen, with image documentation. COMPARISON: Reference is made to the CT abdomen dated April 20, 2021 FINDINGS: AORTA: The visualized abdominal aorta is normal. IVC: The visualized IVC is normal. LIVER: Increased echogenicity liver, compatible hepatic steatosis. Coarsened echotexture. The misti l vein is patent. PANCREAS: Obscured by bowel gas. Gallbladder and biliary tree: No gallbladder wall thickening, pericholecystic fluid, or shadowing g allstones. The common bile duct measures up to 3.5 mm. RIGHT KIDNEY: No gross hydronephrosis. Measuring 12.3 cm in length. The renal cortex thickness wero ures 1.9 cm. Residual right pelviectasis is noted. Small amount of ascites in the right upper quadrant. IMPRESSION: 1.Nonvisualization of the pancreas. 2.Residual right pelviectasis. 3.Hepatic steatosis. 4.Trace right upper quadrant ascites. Reviewed by: Ty Dee MD on 04/21/2021 12:31 PM PST Approved by: Ty Dee MD on 04/21/2021 12:31 PM PST Station ID: [id number]
[2021-04-21] MEDS: chlordiazePOXIDE 5 MG CAPSULE PO SCH ×2 (19:19→23:28)
[2021-04-21] MEDS: SODIUM CHLORIDE FLUSH 0.9% 10 ML SYRINGE IVP PRN (19:19)
[2021-04-21] MEDS: OXYMETAZOLINE HCL 100 SPRAYS BOTTLE NAS PRN (23:27)
[2021-04-22] MEDS: SODIUM CHLORIDE FLUSH 0.9% 10 ML SYRINGE IVP SCH ×4 (00:23→23:22)
[2021-04-22] MEDS: LORazepam 2 MG/ML VIAL IVP PRN ×4 (03:18→23:22)
[2021-04-22] MEDS: HYDROmorphone 1 MG/ML CARPUJECT IVP PRN ×7 (03:18→20:31)
[2021-04-22] MEDS: LACTATED RINGERS 1,000 ML IV SCH ×3 (03:55→18:45)
[2021-04-22 05:21] LABS: BASOPHILS % (AUTO) 0.7 %; CALCIUM, IONIZED 1.12 mmol/L (1.15-1.33); EOSINOPHILS # (AUTO) 0.2 10^3/uL (0.0-0.7); EOSINOPHILS % (AUTO) 2.9 %; HCT - HEMATOCRIT 32.6 % (42.0-52.0); LYMPHOCYTES # (AUTO) 0.4 10^3/uL (1.5-3.5); LYMPHOCYTES % (AUTO) 6.8 %; MEAN CORPUSCULAR HGB CONC 33.7 g/dL (32.0-36.0); MEAN CORPUSCULAR VOLUME 97.9 fL (80.0-94.0); MEAN PLATELET VOLUME 10.3 fL (7.4-11.4); MONOCYTES # (AUTO) 0.6 10^3/uL (0.0-1.0); MONOCYTES % (AUTO) 9.9 %; NEUTROPHILS # (AUTO) 4.9 10^3/uL (1.5-6.6); PLT - PLATELET COUNT 112 10^3/uL (130-450); RED BLOOD COUNT 3.33 10^6/uL (4.70-6.10); RED CELL DISTRIBUTION WIDTH 16.1 % (12.0-15.0); VBG PH 7.39 (7.31-7.41); WHITE BLOOD COUNT 6.1 x10^3/uL (4.8-10.8)
[2021-04-22] MEDS: ONDANSETRON 4 MG/2 ML VIAL IVP PRN ×2 (05:29→15:58)
[2021-04-22] MEDS: chlordiazePOXIDE 5 MG CAPSULE PO SCH ×4 (05:41→23:22)
[2021-04-22 06:00] LABS: ALBUMIN 2.8 g/dL (3.2-5.5); BILIRUBIN,DIRECT 2.8 mg/dL (0.1-0.5); CALCIUM 8.3 mg/dL (8.5-10.3); CREATININE 0.7 mg/dL (0.6-1.2); MAGNESIUM 2.2 mg/dL (1.7-2.8); PHOSPHORUS 1.3 mg/dL (2.5-4.6); POTASSIUM 3.9 mmol/L (3.5-5.0); TOTAL PROTEIN 6.2 g/dL (6.7-8.2)
[2021-04-22] MEDS: THIAMINE INJ 100 MG in SODIUM CHLORIDE 0.9% 50 ML IV SCH (07:58)
[2021-04-22] MEDS ORDERED: POTASSIUM PHOSPHATE 21 MMOL in SODIUM CHLORIDE 0.9% 250 ML IV ONE (08:00)
[2021-04-22] MEDS: ENOXAPARIN 40 MG/0.4 ML SYRINGE SUBQ SCH (09:26)
[2021-04-22] MEDS ORDERED: DEXTROSE 50% ABBOJECT 25 GM/50 ML SYRINGE IVP ONE (11:57)
[2021-04-22] MEDS ORDERED: DEXTROSE 50% ABBOJECT 25 GM/50 ML SYRINGE ONE (12:09)
[2021-04-22] MEDS: DOCUSATE SODIUM 250 MG CAPSULE PO SCH (12:53)
[2021-04-22] MEDS: SENNA 8.6 MG TABLET PO SCH (12:53)
[2021-04-22 15:22] LABS: PHOSPHORUS 2.3 mg/dL (2.5-4.6); POTASSIUM 3.9 mmol/L (3.5-5.0)
[2021-04-22] MEDS ORDERED: POTASSIUM CHLORIDE 20 MEQ TABLET PO ONE (15:58)
[2021-04-22] MEDS: NEUTRA-PHOS 250 MG TABLET PO SCH ×2 (16:11→18:07)
--- NOTE | 2021-04-22 16:52 | PROVIDER PROGRESS NOTE ---
Subjective - Prog Note Date Prog Note Date: 04/22/21 Prog Note Time: 17:29 - Subjective Pt reports feeling: Improved Subjective: Evening I noted that he was having consistent tachycardia and tremulousness. I started him on Librium. This is made him very sleepy. Difficult to arouse but he is arousable and he does wake up to speak and to eat. Blood sugar was 68 this morning and given half an amp of D50. Nursing is working with him today. He has been sitting upright. Speaking to nurse. But confused. States that he feels better today but does not ever remember meeting me. He knows he is in the hospital but not quite which 1 He is consistently at 111 219. At times, with exertion and trying to stay alert and focus his pulse will go to 130. He is consistently hypertensive. He is 167/117 at 5 PM. Was 149/114 at 1 PM. Current Medications - Current Medications Current Medications: Active Medications Chlordiazepoxide HCl (Chlordiazepoxide 5 Mg Capsule) 5 mg PO Q6HR [facility] Last Admin: 04/22/21 12:50 Dose: 5 mg Docusate Sodium (Docusate Sodium 250 Mg Capsule) 250 - 500 mg PO DAILY [facility] Last Admin: 04/22/21 12:53 Dose: 250 mg Enoxaparin Sodium (Enoxaparin 40 Mg/0.4 Ml Syringe) 40 mg SUBQ DAILY [facility] Last Admin: 04/22/21 09:26 Dose: 40 mg Hydromorphone HCl (Hydromorphone 1 Mg/Ml Carpuject) 1 mg IVP Q2H PRN PRN Reason: pain 8 to 10 Last Admin: 04/22/21 16:19 Dose: 1 mg Lactated Ringer's (Lr) 1,000 mls @ 200 mls/hr IV .Q5H [facility] Last Admin: 04/22/21 13:44 Dose: 200 mls/hr Thiamine HCl 100 mg/ Sodium (Chloride) 51 mls @ 100 mls/hr IV DAILY [facility] Last Infusion: 04/22/21 08:30 Dose: Infused Lorazepam (Lorazepam 2 Mg/Ml Vial) 1 mg IVP Q30M PRN PRN Reason: Alcohol Withdrawal Last Admin: 04/22/21 09:22 Dose: 1 mg Ondansetron HCl (Ondansetron Odt 4 Mg Tablet) 4 mg TL Q6HR PRN PRN Reason: Nausea / Vomiting Ondansetron HCl (Ondansetron 4 Mg/2 Ml Vial) 4 mg IVP Q6HR PRN PRN Reason: Nausea / Vomiting Last Admin: 04/22/21 15:58 Dose: 4 mg Oxymetazoline HCl (Oxymetazoline Hcl 100 Sprays Bottle) 2 sprays TOMMY BID PRN PRN Reason: Nasal Congestion Last Admin: 04/21/21 23:27 Dose: 2 sprays Polyethylene Glycol (Polyethylene Glycol 3350 17 Gm Packet) 17 gm PO DAILY [facility] Senna (Senna 8.6 Mg Tablet) 8.6 - 17.2 mg PO DAILY [facility] Last Admin: 04/22/21 12:53 Dose: 8.6 mg Sodium Chloride (Sodium Chloride Flush 0.9% 10 Ml Syringe) 10 ml IVP 0100,0900,1700 [facility] Last Admin: 04/22/21 09:23 Dose: 10 ml Sodium Chloride (Sodium Chloride Flush 0.9% 10 Ml Syringe) 10 ml IVP PRN PRN PRN Reason: NEEDED PER PROVIDER ORDERS Last Admin: 04/21/21 19:19 Dose: 10 ml Sodium Phosphate (Neutra-Phos 250 Mg Tablet) 250 mg PO Q2H [facility]; Protocol Stop: 04/22/21 18:01 Last Admin: 04/22/21 16:11 Dose: 250 mg Secukinumab [Cosentyx (2 Syringes)] 150 mg SUBQ Q28D 10/05/20 Amlodipine Besylate/Benazepril [Amlodipine-Benazepril 5-20 mg] 1 cap PO DAILY 04/21/21 Objective - Vital Signs/Intake & Output Reviewed Vital Signs: Yes Vital Signs: Vital Signs x48h Temp Pulse Resp BP Pulse Ox 04/22/21 16:00 36.2 C L 113 H 16 147/116 H 97 04/22/21 15:00 115 H 17 151/112 H 95 04/22/21 14:00 119 H 23 141/112 H 96 04/22/21 13:00 111 H 18 149/114 H 95 04/22/21 12:00 37.3 C 110 H 13 137/106 H 97 04/22/21 11:00 106 H 14 154/109 H 94 04/22/21 10:00 113 H 18 147/110 H 94 04/22/21 09:00 119 H 17 144/114 H 93 Intake & Output: Intake & Output 04/19/21 04/20/21 04/21/21 04/22/21 23:59 23:59 23:59 23:59 Intake Total 3400.533 7097.334 5298.000 Output Total 175 1165 1025 Balance 3225.533 5932.334 4273.000 - Objective General Appearance: positive: Other (Sitting up in bed. Speech is lucid. He is trying very hard not to slur his words and to stay upright and awake. He does at one point even apologize and say I am so sorry, I really need to get back to sleep".) Eyes Bilateral: positive: PERRL, EOMI ENT: positive: No signs of dehydration Neck: positive: No JVD. negative: Stiff neck Respiratory: positive: No respiratory distress. negative: Wheezes, Rales, Rhonchi Cardiovascular: positive: Regular rate & rhythm, Tachycardia. negative: Gallop/S4, Friction rub Abdomen: positive: Tenderness (Epigastrium and left upper quadrant. No masses palpable.), Other (Hypoactive bowel sounds.). negative: Guarding, Rebound Skin: positive: Warm, Diaphoresis (Still minimally present today on forehead and lips. Worse yesterday.), Pallor Extremities: positive: Full ROM, No pedal edema Neurologic/Psychiatric: positive: CN's nml (2-12), Disoriented to time. negative: Motor nml (Tremulousness was present for the last 2 days. Much improved today. I watched him bring a cup of water to his mouth without any noticeable tremor today.) - Lab Results Fish Bones: 04/22/21 04:18 04/22/21 15:00 Other Labs: Lab Results x24hrs 04/22/21 04/22/21 04/22/21 Range/Units 15:00 04:18 04:18 WBC (4.8-10.8) x10^3/uL RBC (4.70-6.10) 10^6/uL Hgb (14.0-18.0) g/dL Hct (42.0-52.0) % MCV (80.0-94.0) fL MCH (27.0-31.0) pg MCHC (32.0-36.0) g/dL RDW (12.0-15.0) % Plt Count (130-450) 10^3/uL MPV (7.4-11.4) fL Neut # (Auto) (1.5-6.6) 10^3/uL Lymph # (Auto) (1.5-3.5) 10^3/uL [place] # (Auto) (0.0-1.0) 10^3/uL Eos # (Auto) (0.0-0.7) 10^3/uL Baso # (Auto) (0.0-0.1) 10^3/uL Absolute Nucleated RBC x10^3/uL Nucleated RBC % /100WBC VBG pH 7.390 (7.31-7.41) Ionized Calcium 1.12 L (1.15-1.33) mmol/L Sodium 130 L (135-145) mmol/L Potassium 3.9 3.9 (3.5-5.0) mmol/L Chloride 94 L (101-111) mmol/L Carbon Dioxide 25 (21-32) mmol/L Anion Gap 11.0 (6-13) BUN 14 (6-20) mg/dL Creatinine 0.7 (0.6-1.2) mg/dL Estimated GFR (MDRD) 126 (>89) Glucose 73 (70-100) mg/dL Calcium 8.3 L (8.5-10.3) mg/dL Phosphorus 2.3 L 1.3 L (2.5-4.6) mg/dL Magnesium 2.2 (1.7-2.8) mg/dL Total Bilirubin 5.0 H (0.2-1.0) mg/dL Direct Bilirubin 2.8 H (0.1-0.5) mg/dL AST 318 H (10-42) IU/L ALT 97 H (10-60) IU/L Alkaline Phosphatase 166 H (42-121) IU/L Total Protein 6.2 L (6.7-8.2) g/dL Albumin 2.8 L (3.2-5.5) g/dL Globulin 3.4 (2.1-4.2) g/dL Amylase 175 H (28-100) U/L Lipase 672 H (22-51) U/L 03/05/22 Range/Units 04:18 WBC 6.1 (4.8-10.8) x10^3/uL RBC 3.33 L (4.70-6.10) 10^6/uL Hgb 11.0 L (14.0-18.0) g/dL Hct 32.6 L (42.0-52.0) % MCV 97.9 H (80.0-94.0) fL MCH 33.0 H (27.0-31.0) pg MCHC 33.7 (32.0-36.0) g/dL RDW 16.1 H (12.0-15.0) % Plt Count 112 L (130-450) 10^3/uL MPV 10.3 (7.4-11.4) fL Neut # (Auto) 4.9 (1.5-6.6) 10^3/uL Lymph # (Auto) 0.4 L (1.5-3.5) 10^3/uL [place] # (Auto) 0.6 (0.0-1.0) 10^3/uL Eos # (Auto) 0.2 (0.0-0.7) 10^3/uL Baso # (Auto) 0.0 (0.0-0.1) 10^3/uL Absolute Nucleated RBC 0.00 x10^3/uL Nucleated RBC % 0.0 /100WBC VBG pH (7.31-7.41) Ionized Calcium (1.15-1.33) mmol/L Sodium (135-145) mmol/L Potassium (3.5-5.0) mmol/L Chloride (101-111) mmol/L Carbon Dioxide (21-32) mmol/L Anion Gap (6-13) BUN (6-20) mg/dL Creatinine (0.6-1.2) mg/dL Estimated GFR (MDRD) (>89) Glucose (70-100) mg/dL Calcium (8.5-10.3) mg/dL Phosphorus (2.5-4.6) mg/dL Magnesium (1.7-2.8) mg/dL Total Bilirubin (0.2-1.0) mg/dL Direct Bilirubin (0.1-0.5) mg/dL AST (10-42) IU/L ALT (10-60) IU/L Alkaline Phosphatase (42-121) IU/L Total Protein (6.7-8.2) g/dL Albumin (3.2-5.5) g/dL Globulin (2.1-4.2) g/dL Amylase (28-100) U/L Lipase (22-51) U/L ABX Reporting Has patient been on IV antibiotics over the past 48 hours?: No Sepsis Event Note (H) - Evaluation Current Stage of Sepsis: Ruled out Assessment/Plan - Problem List (1) Acute alcoholic pancreatitis Impression: Patient has a history of chronic alcohol abuse and now presents with acute pancreatitis. Amylase 491, and lipase 1608. LFTs elevated. He also has elevated billirubin and tea colored urine. CT reveals peripancreatic inflammation without fluid collection. No evidence of ductal dilation. Although gallstone induced pancreatitis is less likely we did do an ultrasound of the abdomen and was negative for stones or cholecystitis changes. Treatment consisted of 4 L of lactated Ringer and that first night and he has been maintained on lactated Ringer since then. [place] score was 4% estimated mortality for nonoperative management at this time. Plan: Continue to support with fluids, antiemetics, pain medicine. His trended lipase is showing improvement. He was initially 2556>> 1608>> 672 Trended amylase 491>> 175 Bilirubin and AST with ALT remain relatively unchanged. He continues to have tea colored urine. NPO except water Qualifiers: Acute pancreatitis complication: unspecified Qualified Code(s): K85.20 - Alcohol induced acute pancreatitis without necrosis or infection (2) Lactic acidosis resolved Impression: Lactic acid started at 7.9 on admission. After aggressive resuscitation he was 1.2 by the morning of April 21. I am attributing that mainly to liver failure and dehydration. We do not feel he had sepsis. (3) Alcoholic hepatitis Impression: His LFTs are elevated and he has evidence of hepatic steatosis on CT. He has chronic transaminitis but it was worse upon admission. CT showed no evidence of ductal dilatation. INR normal. We will trend his LFTs and he has been counseled on the importance of alcohol cessation. Unfortunately his bilirubin and liver function studies continue to be elevated. They have trended in the downward direction which is good but not quickly. We will continue to monitor for signs and symptoms of liver failure. Will check ammonia level tomorrow morning. Qualifiers: Ascites presence: without ascites Qualified Code(s): K70.10 - Alcoholic hepatitis without ascites (4) Alcohol abuse Impression: This is the cause of his acute pancreatitis. His EtOH level was 45.7 upon admission. Withdrawal has been present. [place] protocol with Ativan as needed. He has been changed from IV Thiamine to po thiamine. He was counseled on the importance of alcohol cessation and social work Has provided him with resources. He plans on moving to [place] and they have given him a list of providers and alcohol abuse centers there. He is asking that we not discuss his case with his commanding officer. 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 He is not clear about why that is happening. (5) Alcohol withdrawal Impression: He is a tremor at baseline and he feels like he is more tremulous due to the pancreatitis. But he has been consistently tachycardic and hypertensive. I started him on Librium scheduled dose yesterday. I will increase his Librium dose today. (6) Hydronephrosis of right kidney Impression: This once again remains evident on CT the abdomen pelvis and is stable compared to prior imaging from last year. No evidence of obvious mass or obstruction. He has been following with urology [facility] and will continue to do so once discharged. (7) Hypertension Impression: Hypertensive today At home he takes a combined amlodipine and lisinopril tablet. I will resume those as well as the metoprolol. Consider IV labetalol if necessary. (8) Psoriasis Impression: He will continue Cosentyx on outpatient basis. Qualifiers: Qualified Code(s): K85.20 - Alcohol induced acute pancreatitis without necrosis or infection
[2021-04-22] MEDS: METOPROLOL TARTRATE 25 MG TABLET PO SCH (20:30)
[2021-04-22] MEDS: OXYMETAZOLINE HCL 100 SPRAYS BOTTLE NAS PRN (20:31)
[2021-04-22] MEDS: SODIUM CHLORIDE FLUSH 0.9% 10 ML SYRINGE IVP PRN (20:31)
[2021-04-23] MEDS: HYDROmorphone 1 MG/ML CARPUJECT IVP PRN ×6 (00:14→22:08)
[2021-04-23] MEDS: LORazepam 2 MG/ML VIAL IVP PRN ×4 (02:55→21:37)
[2021-04-23 04:17] LABS: BASOPHILS # (AUTO) 0.1 10^3/uL (0.0-0.1); BASOPHILS % (AUTO) 0.9 %; EOSINOPHILS # (AUTO) 0.2 10^3/uL (0.0-0.7); EOSINOPHILS % (AUTO) 3.3 %; HCT - HEMATOCRIT 34.7 % (42.0-52.0); HGB - HEMOGLOBIN 11.7 g/dL (14.0-18.0); LYMPHOCYTES # (AUTO) 0.3 10^3/uL (1.5-3.5); LYMPHOCYTES % (AUTO) 5.7 %; MEAN CORPUSCULAR HEMOGLOBIN 33.1 pg (27.0-31.0); MEAN CORPUSCULAR HGB CONC 33.7 g/dL (32.0-36.0); MEAN CORPUSCULAR VOLUME 98.3 fL (80.0-94.0); MEAN PLATELET VOLUME 9.7 fL (7.4-11.4); MONOCYTES # (AUTO) 0.8 10^3/uL (0.0-1.0); MONOCYTES % (AUTO) 14.4 %; NEUTROPHILS # (AUTO) 4.4 10^3/uL (1.5-6.6); PLT - PLATELET COUNT 164 10^3/uL (130-450); RED BLOOD COUNT 3.53 10^6/uL (4.70-6.10); RED CELL DISTRIBUTION WIDTH 15.9 % (12.0-15.0); VBG PH 7.379 (7.31-7.41); WHITE BLOOD COUNT 5.8 x10^3/uL (4.8-10.8)
[2021-04-23 04:18] LABS: CALCIUM, IONIZED 1.1 mmol/L (1.15-1.33)
[2021-04-23 04:27] LABS: ALBUMIN 2.9 g/dL (3.2-5.5); BILIRUBIN,DIRECT 2.9 mg/dL (0.1-0.5); CALCIUM 8.2 mg/dL (8.5-10.3); CREATININE 0.7 mg/dL (0.6-1.2); MAGNESIUM 2.1 mg/dL (1.7-2.8); PHOSPHORUS 2.2 mg/dL (2.5-4.6); POTASSIUM 3.9 mmol/L (3.5-5.0); TOTAL PROTEIN 6.1 g/dL (6.7-8.2)
[2021-04-23] MEDS: chlordiazePOXIDE 5 MG CAPSULE PO SCH ×3 (05:05→17:49)
[2021-04-23] MEDS: NEUTRA-PHOS 250 MG TABLET PO SCH ×2 (08:17→10:00)
[2021-04-23] MEDS: METOPROLOL TARTRATE 25 MG TABLET PO SCH ×2 (08:26→20:13)
[2021-04-23] MEDS: DOCUSATE SODIUM 250 MG CAPSULE PO SCH (08:26)
[2021-04-23] MEDS: THIAMINE 100 MG TABLET PO SCH (08:27)
[2021-04-23] MEDS: SENNA 8.6 MG TABLET PO SCH (08:27)
[2021-04-23] MEDS: lisinopriL 20 MG TABLET PO SCH (08:28)
[2021-04-23] MEDS: polyethylene glycoL 3350 17 GM PACKET PO SCH (08:28)
[2021-04-23] MEDS: amLODIPine 5 MG TABLET PO SCH (08:28)
[2021-04-23] MEDS: ENOXAPARIN 40 MG/0.4 ML SYRINGE SUBQ SCH (08:56)
[2021-04-23] MEDS: ONDANSETRON 4 MG/2 ML VIAL IVP PRN ×2 (08:56→15:20)
[2021-04-23] MEDS: SODIUM CHLORIDE FLUSH 0.9% 10 ML SYRINGE IVP SCH ×2 (08:58→15:20)
[2021-04-23] MEDS: OXYMETAZOLINE HCL 100 SPRAYS BOTTLE NAS PRN (09:00)
[2021-04-23] MEDS: SODIUM CHLORIDE FLUSH 0.9% 10 ML SYRINGE IVP PRN (09:17)
--- NOTE | 2021-04-23 18:28 | PROVIDER PROGRESS NOTE ---
Subjective - Prog Note Date Prog Note Date: 04/23/21 Prog Note Time: 18:26 - Subjective Subjective: he is up to bathroom. BP and pulse better with resumption of his BP meds and increase of librium. Abd pain stable on full liquids. He has the nagging left mid axillary pain. At first he told me it was at his rib cage but when I examined him it is below the rib cage. He says he has not had any trauma or fall. Pretty steady, unremitting. Slightly pruritic. Current Medications - Current Medications Current Medications: Active Medications Amlodipine Besylate (Amlodipine 5 Mg Tablet) 5 mg PO DAILY [facility] Last Admin: 04/23/21 08:28 Dose: 5 mg Chlordiazepoxide HCl (Chlordiazepoxide 5 Mg Capsule) 10 mg PO Q6HR [facility] Last Admin: 04/23/21 17:49 Dose: 10 mg Docusate Sodium (Docusate Sodium 250 Mg Capsule) 250 - 500 mg PO DAILY [facility] Last Admin: 04/23/21 08:26 Dose: 250 mg Enoxaparin Sodium (Enoxaparin 40 Mg/0.4 Ml Syringe) 40 mg SUBQ DAILY [facility] Last Admin: 04/23/21 08:56 Dose: 40 mg Hydromorphone HCl (Hydromorphone 1 Mg/Ml Carpuject) 1 mg IVP Q2H PRN PRN Reason: pain 8 to 10 Last Admin: 04/23/21 15:52 Dose: 1 mg Lisinopril (Lisinopril 20 Mg Tablet) 20 mg PO DAILY [facility] Last Admin: 04/23/21 08:28 Dose: 20 mg Lorazepam (Lorazepam 2 Mg/Ml Vial) 1 mg IVP Q30M PRN PRN Reason: Alcohol Withdrawal Last Admin: 04/23/21 15:48 Dose: 1 mg Metoprolol Tartrate (Metoprolol Tartrate 25 Mg Tablet) 25 mg PO BID [facility] Last Admin: 04/23/21 08:26 Dose: 25 mg Ondansetron HCl (Ondansetron Odt 4 Mg Tablet) 4 mg TL Q6HR PRN PRN Reason: Nausea / Vomiting Ondansetron HCl (Ondansetron 4 Mg/2 Ml Vial) 4 mg IVP Q6HR PRN PRN Reason: Nausea / Vomiting Last Admin: 03/06/22 15:20 Dose: 4 mg Oxymetazoline HCl (Oxymetazoline Hcl 100 Sprays Bottle) 2 sprays TOMMY BID PRN PRN Reason: Nasal Congestion Last Admin: 04/23/21 09:00 Dose: 2 sprays Polyethylene Glycol (Polyethylene Glycol 3350 17 Gm Packet) 17 gm PO DAILY [facility] Last Admin: 04/23/21 08:28 Dose: Not Given Senna (Senna 8.6 Mg Tablet) 8.6 - 17.2 mg PO DAILY [facility] Last Admin: 04/23/21 08:27 Dose: 8.6 mg Sodium Chloride (Sodium Chloride Flush 0.9% 10 Ml Syringe) 10 ml IVP 0100,0900,1700 [facility] Last Admin: 04/23/21 15:20 Dose: 10 ml Sodium Chloride (Sodium Chloride Flush 0.9% 10 Ml Syringe) 10 ml IVP PRN PRN PRN Reason: NEEDED PER PROVIDER ORDERS Last Admin: 04/23/21 09:17 Dose: 10 ml Thiamine HCl (Thiamine 100 Mg Tablet) 100 mg PO DAILY [facility] Last Admin: 04/23/21 08:27 Dose: 100 mg Secukinumab [Cosentyx (2 Syringes)] 150 mg SUBQ Q28D 10/05/20 Amlodipine Besylate/Benazepril [Amlodipine-Benazepril 5-20 mg] 1 cap PO DAILY 04/21/21 Objective - Vital Signs/Intake & Output Reviewed Vital Signs: Yes Vital Signs: Vital Signs x48h Temp Pulse Resp BP Pulse Ox 04/23/21 18:00 115 H 25 H 133/103 H 93 04/23/21 17:00 111 H 20 125/108 H 94 04/23/21 16:00 36.8 C 99 15 125/95 H 95 04/23/21 15:00 98 18 119/86 H 94 04/23/21 14:00 101 H 16 145/98 H 94 04/23/21 13:00 93 14 128/101 H 94 04/23/21 12:00 36.2 C L 106 H 21 133/96 H 93 04/23/21 11:00 96 14 130/95 H 93 Intake & Output: Intake & Output 04/20/21 04/21/21 04/22/21 04/23/21 23:59 23:59 23:59 23:59 Intake Total 3400.533 7097.334 6998.000 2980 Output Total 175 1165 1625 800 Balance 3225.533 5932.334 5373.000 2180 - Objective General Appearance: positive: Lethargic (He has waxing and waning alertness during the day depending on how much benzodiazepine he has and how much sleep he is getting. He does tell me "this is taking too long" he wishes he could just get out of here) Eyes Bilateral: positive: PERRL, EOMI, No scleral icterus, Other (Wearing glasses. Watching golf on TV) ENT: positive: No signs of dehydration Neck: positive: No JVD. negative: Stiff neck Respiratory: positive: No respiratory distress. negative: Wheezes, Rales, Rh onchi Cardiovascular: positive: Regular rate & rhythm. negative: Gallop/S4, Friction rub Abdomen: positive: Other (Slightly tympanic, distended abdomen. Left upper quadrant pain. Pain along the left mid axillary line below the rib cage. Hypoactive bowel sounds.). negative: Guarding, Rebound, Hepatomegaly, Splenomegaly Skin: positive: Warm, Dry Extremities: positive: Full ROM, No pedal edema Neurologic/Psychiatric: positive: Oriented x3 (Occasionally disoriented to place and time), CN's nml (2-12), Motor nml (Tremulousness has resolved. Day before yesterday was the last time I really saw it.) - Lab Results Fish Bones: 04/23/21 04:03 04/23/21 04:03 Other Labs: Lab Results x24hrs 04/23/21 04/23/21 04/23/21 Range/Units 04:03 04:03 04:03 WBC 5.8 (4.8-10.8) x10^3/uL RBC 3.53 L (4.70-6.10) 10^6/uL Hgb 11.7 L (14.0-18.0) g/dL Hct 34.7 L (42.0-52.0) % MCV 98.3 H (80.0-94.0) fL MCH 33.1 H (27.0-31.0) pg MCHC 33.7 (32.0-36.0) g/dL RDW 15.9 H (12.0-15.0) % Plt Count 164 (130-450) 10^3/uL MPV 9.7 (7.4-11.4) fL Neut # (Auto) 4.4 (1.5-6.6) 10^3/uL Lymph # (Auto) 0.3 L (1.5-3.5) 10^3/uL [place] # (Auto) 0.8 (0.0-1.0) 10^3/uL Eos # (Auto) 0.2 (0.0-0.7) 10^3/uL Baso # (Auto) 0.1 (0.0-0.1) 10^3/uL Absolute Nucleated RBC 0.00 x10^3/uL Nucleated RBC % 0.0 /100WBC VBG pH 7.379 (7.31-7.41) Ionized Calcium 1.10 L (1.15-1.33) mmol/L Sodium 131 L (135-145) mmol/L Potassium 3.9 (3.5-5.0) mmol/L Chloride 94 L (101-111) mmol/L Carbon Dioxide 26 (21-32) mmol/L Anion Gap 11.0 (6-13) BUN 11 (6-20) mg/dL Creatinine 0.7 (0.6-1.2) mg/dL Estimated GFR (MDRD) 126 (>89) Glucose 72 (70-100) mg/dL Calcium 8.2 L (8.5-10.3) mg/dL Phosphorus 2.2 L (2.5-4.6) mg/dL Magnesium 2.1 (1.7-2.8) mg/dL Total Bilirubin 5.0 H (0.2-1.0) mg/dL Direct Bilirubin 2.9 H (0.1-0.5) mg/dL AST 327 H (10-42) IU/L ALT 110 H (10-60) IU/L Alkaline Phosphatase 200 H (42-121) IU/L Total Protein 6.1 L (6.7-8.2) g/dL Albumin 2.9 L (3.2-5.5) g/dL Globulin 3.2 (2.1-4.2) g/dL Lipase 167 H (22-51) U/L ABX Reporting Has patient been on IV antibiotics over the past 48 hours?: No Sepsis Event Note (H) - Evaluation Current Stage of Sepsis: Ruled out Assessment/Plan - Problem List (1) Acute alcoholic pancreatitis Impression: Patient has a history of chronic alcohol abuse and now presents with acute pancreatitis. Amylase 491, and lipase 1608. LFTs elevated. He also has elevated billirubin and tea colored urine. CT reveals peripancreatic inflammation without fluid collection. No evidence of ductal dilation. Although gallstone induced pancreatitis is less likely we did do an ultrasound of the abdomen and was negative for stones or cholecystitis changes. Treatment consisted of 4 L of lactated Ringer and that first night and he has been maintained on lactated Ringer since then. [place] score was 4% estimated mortality for nonoperative management at this time. Advanced to full liquids this am and is doing well. Plan: Continue to support with antiemetics, pain medicine but his fluids have been stopped since eating now. His trended lipase is showing improvement. He was initially 2556>> 1608>> 672>>167 Trended amylase 491>> 175 Bilirubin and AST with ALT remain relatively unchanged. He continues to have tea colored urine. Qualifiers: Acute pancreatitis complication: unspecified Qualified Code(s): K85.20 - Alcohol induced acute pancreatitis without necrosis or infection (2) Lactic acidosis resolved Impression: Lactic acid started at 7.9 on admission. After aggressive resuscitation he was 1.2 by the morning of April 21. I am attributing that mainly to liver failure and dehydration. We do not feel he had sepsis. (3) Alcoholic hepatitis Impression: His LFTs are elevated and he has evidence of hepatic steatosis on CT. He has chronic transaminitis but it was worse upon admission. CT showed no evidence of ductal dilatation. INR normal. As we trend his LFTs they remain elevated. He has been counseled on the importance of alcohol cessation. They have trended in the downward direction which is good but not quickly. We will continue to monitor for signs and symptoms of liver failure. Will check ammonia level tomorrow morning. Qualifiers: Ascites presence: without ascites Qualified Code(s): K70.10 - Alcoholic hepatitis without ascites (4) Alcohol abuse Impression: This is the cause of his acute pancreatitis. His EtOH level was 45.7 upon admission. Withdrawal has been present. [facility] protocol with Ativan as needed. He has been changed from IV Thiamine to po thiamine. He was counseled on the importance of alcohol cessation and social work Has provided him with resources. He plans on moving to [place] and they have given him a list of providers and alcohol abuse centers there. He is asking that we not discuss his case with his commanding officer. 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 He is not clear about why that is happening. (5) Alcohol withdrawal Impression: He has a tremor at baseline and he feels like he is more tremulous due to the pancreatitis. But he has been consistently tachycardic and hypertensive. I started him on Librium scheduled dose 48 hours ago and increased it 24 hours ago. Sleepy but stable and vital signs have improved. (6) Hydronephrosis of right kidney Impression: This once again remains evident on CT the abdomen pelvis and is stable compared to prior imaging from last year. No evidence of obvious mass or obstruction. He has been following with urology [facility] and will continue to do so once discharged. (7) Hypertension Impression: Hypertension is improving with resumption of his meds. At home he takes a combined amlodipine and lisinopril tablet. Consider IV labetalol if necessary. (8) Psoriasis Impression: He will continue Cosentyx on outpatient basis. Qualifiers: Qualified Code(s): K85.20 - Alcohol induced acute pancreatitis without necrosis or infection
[2021-04-23] MEDS ORDERED: LIDOCAINE PATCH 5% TOP PRN (19:31)
[2021-04-24] MEDS: chlordiazePOXIDE 5 MG CAPSULE PO SCH ×5 (00:24→23:50)
[2021-04-24] MEDS: HYDROmorphone 1 MG/ML CARPUJECT IVP PRN ×3 (00:50→05:14)
[2021-04-24] MEDS: SODIUM CHLORIDE FLUSH 0.9% 10 ML SYRINGE IVP SCH ×4 (01:02→23:50)
[2021-04-24 04:35] LABS: VBG PH 7.415 (7.31-7.41)
[2021-04-24 04:36] LABS: BASOPHILS # (AUTO) 0.1 10^3/uL (0.0-0.1); BASOPHILS % (AUTO) 0.7 %; CALCIUM, IONIZED 1.08 mmol/L (1.15-1.33); EOSINOPHILS # (AUTO) 0.1 10^3/uL (0.0-0.7); HCT - HEMATOCRIT 36.6 % (42.0-52.0); HGB - HEMOGLOBIN 12.6 g/dL (14.0-18.0); LYMPHOCYTES # (AUTO) 0.4 10^3/uL (1.5-3.5); LYMPHOCYTES % (AUTO) 5.5 %; MEAN CORPUSCULAR HEMOGLOBIN 33.7 pg (27.0-31.0); MEAN CORPUSCULAR HGB CONC 34.4 g/dL (32.0-36.0); MEAN CORPUSCULAR VOLUME 97.9 fL (80.0-94.0); MEAN PLATELET VOLUME 9.4 fL (7.4-11.4); MONOCYTES # (AUTO) 1.1 10^3/uL (0.0-1.0); MONOCYTES % (AUTO) 15.5 %; NEUTROPHILS # (AUTO) 5.3 10^3/uL (1.5-6.6); NEUTROPHILS % (AUTO) 75.7 %; PLT - PLATELET COUNT 211 10^3/uL (130-450); RED BLOOD COUNT 3.74 10^6/uL (4.70-6.10); RED CELL DISTRIBUTION WIDTH 16.6 % (12.0-15.0); WHITE BLOOD COUNT 7.1 x10^3/uL (4.8-10.8)
[2021-04-24 04:52] LABS: ALBUMIN 2.8 g/dL (3.2-5.5); BILIRUBIN,DIRECT 2.8 mg/dL (0.1-0.5); BILIRUBIN,TOTAL 4.9 mg/dL (0.2-1.0); CALCIUM 8.6 mg/dL (8.5-10.3); CREATININE 0.7 mg/dL (0.6-1.2); PHOSPHORUS 3.1 mg/dL (2.5-4.6); POTASSIUM 3.6 mmol/L (3.5-5.0); TOTAL PROTEIN 6.5 g/dL (6.7-8.2)
[2021-04-24] MEDS: CALCIUM CARBONATE CHEW 500 MG TABLET PO SCH ×2 (05:14→08:16)
[2021-04-24] MEDS ORDERED: POTASSIUM CHLORIDE 20 MEQ TABLET PO ONE (08:00)
[2021-04-24] MEDS: polyethylene glycoL 3350 17 GM PACKET PO SCH (08:14)
[2021-04-24] MEDS: amLODIPine 5 MG TABLET PO SCH (08:15)
[2021-04-24] MEDS: NICOTINE 14 MG PATCH TOP SCH (08:15)
[2021-04-24] MEDS: METOPROLOL TARTRATE 25 MG TABLET PO SCH ×2 (08:15→20:18)
[2021-04-24] MEDS: lisinopriL 20 MG TABLET PO SCH (08:16)
[2021-04-24] MEDS: ENOXAPARIN 40 MG/0.4 ML SYRINGE SUBQ SCH (08:16)
[2021-04-24] MEDS: DOCUSATE SODIUM 250 MG CAPSULE PO SCH (08:27)
[2021-04-24] MEDS: SENNA 8.6 MG TABLET PO SCH (08:27)
[2021-04-24] MEDS: THIAMINE 100 MG TABLET PO SCH (08:28)
[2021-04-24] MEDS: PRENATAL VITAMIN TABLET PO SCH (08:33)
[2021-04-24] MEDS ORDERED: LORazepam 2 MG/ML VIAL IVP PRN (11:31)
--- NOTE | 2021-04-24 11:43 | PROVIDER PROGRESS NOTE ---
Subjective - Prog Note Date Prog Note Date: 04/24/21 Prog Note Time: 12:14 - Subjective Subjective: He falls asleep in midsentence when talking to me. Tremors have gone. Tachycardia still slight. Tolerating a full liquid diet. No nausea, vomiting. Bowel movement this morning. Nursing reports that he does have occasional tremors but he says that has a baseline tremor. He says his pain is in the epigastrium and left upper quadrant but not severe. The pain that he was feeling in the left mid axillary mid abdomen line is gone. Current Medications - Current Medications Current Medications: Active Medications Amlodipine Besylate (Amlodipine 5 Mg Tablet) 5 mg PO DAILY [facility] Last Admin: 04/24/21 08:15 Dose: 5 mg Chlordiazepoxide HCl (Chlordiazepoxide 5 Mg Capsule) 5 mg PO Q6HR [facility] Stop: 04/25/21 00:01 Last Admin: 04/24/21 12:04 Dose: 5 mg Docusate Sodium (Docusate Sodium 250 Mg Capsule) 250 - 500 mg PO DAILY [facility] Last Admin: 04/24/21 08:27 Dose: Not Given Enoxaparin Sodium (Enoxaparin 40 Mg/0.4 Ml Syringe) 40 mg SUBQ DAILY [facility] Last Admin: 04/24/21 08:16 Dose: 40 mg Hydromorphone HCl (Hydromorphone 2 Mg Tablet) 1 mg PO Q6HR PRN PRN Reason: Severe Pain Lidocaine (Lidocaine Patch 5%) 1 patch TOP DAILY PRN PRN Reason: PAIN Last Admin: 04/23/21 20:13 Dose: 1 patch Lisinopril (Lisinopril 20 Mg Tablet) 20 mg PO DAILY [facility] Last Admin: 04/24/21 08:16 Dose: 20 mg Lorazepam (Lorazepam 2 Mg/Ml Vial) 1 mg IVP Q4H PRN PRN Reason: Alcohol Withdrawal Metoprolol Tartrate (Metoprolol Tartrate 25 Mg Tablet) 50 mg PO BID [facility] Nicotine (Nicotine 14 Mg Patch) 1 patch TOP DAILY [facility] Last Admin: 04/24/21 08:15 Dose: 1 patch Ondansetron HCl (Ondansetron Odt 4 Mg Tablet) 4 mg TL Q6HR PRN PRN Reason: Nausea / Vomiting Ondansetron HCl (Ondansetron 4 Mg/2 Ml Vial) 4 mg IVP Q6HR PRN PRN Reason: Nausea / Vomiting Last Admin: 04/23/21 15:20 Dose: 4 mg Oxymetazoline HCl (Oxymetazoline Hcl 100 Sprays Bottle) 2 sprays TOMMY BID PRN PRN Reason: Nasal Congestion Last Admin: 04/23/21 09:00 Dose: 2 sprays Polyethylene Glycol (Polyethylene Glycol 3350 17 Gm Packet) 17 gm PO DAILY [facility] Last Admin: 04/24/21 08:14 Dose: 17 gm Multivit/Folic Acid/Iron ( Vitamin Tablet) 1 tab PO DAILYWM [facility] Last Admin: 04/24/21 08:33 Dose: 1 tab Senna (Senna 8.6 Mg Tablet) 8.6 - 17.2 mg PO DAILY [facility] Last Admin: 04/24/21 08:27 Dose: Not Given Sodium Chloride (Sodium Chloride Flush 0.9% 10 Ml Syringe) 10 ml IVP 0100,0900,1700 [facility] Last Admin: 04/24/21 08:28 Dose: 10 ml Sodium Chloride (Sodium Chloride Flush 0.9% 10 Ml Syringe) 10 ml IVP PRN PRN PRN Reason: NEEDED PER PROVIDER ORDERS Last Admin: 04/23/21 09:17 Dose: 10 ml Thiamine HCl (Thiamine 100 Mg Tablet) 100 mg PO DAILY [facility] Last Admin: 04/24/21 08:28 Dose: 100 mg Secukinumab [Cosentyx (2 Syringes)] 150 mg SUBQ Q28D 10/05/20 Amlodipine Besylate/Benazepril [Amlodipine-Benazepril 5-20 mg] 1 cap PO DAILY 04/21/21 Objective - Vital Signs/Intake & Output Reviewed Vital Signs: Yes Vital Signs: Vital Signs x48h Temp Pulse Resp BP BP Pulse Ox 04/24/21 08:15 112/92 H 04/24/21 08:13 37.1 C 112 H 18 126/92 H 94 04/24/21 04:02 37.6 C 114 H 17 139/100 H 91 L Intake & Output: Intake & Output 04/21/21 04/22/21 04/23/21 04/24/21 23:59 23:59 23:59 23:59 Intake Total 7097.334 6998.000 3180 340 Output Total 1165 1625 1000 Balance 5932.334 5373.000 2180 340 - Objective General Appearance: positive: Lethargic (Right in bed, no diaphoresis, comfortable. No tremors. Tachycardic on the monitor.) Eyes Bilateral: positive: PERRL, EOMI ENT: positive: Pharynx nml Neck: positive: No JVD. negative: Stiff neck Respiratory: positive: No respiratory distress. negative: Wheezes, Rales, Rhonchi Cardiovascular: positive: Regular rate & rhythm, Tachycardia. negative: Gallop/S4, Friction rub Abdomen: positive: No organomegaly, Other (Tenderness in the epigastrium and left upper quadrant mild on exam. He seems to be improved from yesterday and that there is no grimacing no wincing. Hypoactive bowel sounds. Still slightly distended and bloated abdomen.). negative: Guarding, Rebound Skin: positive: Warm, Dry, Pallor Extremities: positive: Full ROM, Pedal edema Neurologic/Psychiatric: positive: Oriented x3, CN's nml (2-12), Motor nml (Eating up and walking to bathroom on his own. Nurse does do standby just in case.) - Lab Results Fish Bones: 04/24/21 04:07 04/24/21 04:07 Other Labs: Lab Results x24hrs 04/24/21 04/24/21 04/24/21 Range/Units 04:07 04:07 04:07 WBC (4.8-10.8) x10^3/uL RBC (4.70-6.10) 10^6/uL Hgb (14.0-18.0) g/dL Hct (42.0-52.0) % MCV (80.0-94.0) fL MCH (27.0-31.0) pg MCHC (32.0-36.0) g/dL RDW (12.0-15.0) % Plt Count (130-450) 10^3/uL MPV (7.4-11.4) fL Neut # (Auto) (1.5-6.6) 10^3/uL Lymph # (Auto) (1.5-3.5) 10^3/uL [place] # (Auto) (0.0-1.0) 10^3/uL Eos # (Auto) (0.0-0.7) 10^3/uL Baso # (Auto) (0.0-0.1) 10^3/uL Absolute Nucleated RBC x10^3/uL Nucleated RBC % /100WBC VBG pH 7.415 H (7.31-7.41) Ionized Calcium 1.08 L (1.15-1.33) mmol/L Sodium 132 L (135-145) mmol/L Potassium 3.6 (3.5-5.0) mmol/L Chloride 94 L (101-111) mmol/L Carbon Dioxide 27 (21-32) mmol/L Anion Gap 11.0 (6-13) BUN 10 (6-20) mg/dL Creatinine 0.7 (0.6-1.2) mg/dL Estimated GFR (MDRD) 126 (>89) Glucose 88 (70-100) mg/dL Calcium 8.6 (8.5-10.3) mg/dL Phosphorus 3.1 (2.5-4.6) mg/dL Magnesium 2.0 (1.7-2.8) mg/dL Total Bilirubin 4.9 H (0.2-1.0) mg/dL Direct Bilirubin 2.8 H (0.1-0.5) mg/dL AST 303 H (10-42) IU/L ALT 118 H (10-60) IU/L Alkaline Phosphatase 245 H (42-121) IU/L Ammonia 43.6 H (7-35) umol/L Total Protein 6.5 L (6.7-8.2) g/dL Albumin 2.8 L (3.2-5.5) g/dL Globulin 3.7 (2.1-4.2) g/dL 04/24/21 Range/Units 04:07 WBC 7.1 (4.8-10.8) x10^3/uL RBC 3.74 L (4.70-6.10) 10^6/uL Hgb 12.6 L (14.0-18.0) g/dL Hct 36.6 L (42.0-52.0) % MCV 97.9 H (80.0-94.0) fL MCH 33.7 H (27.0-31.0) pg MCHC 34.4 (32.0-36.0) g/dL RDW 16.6 H (12.0-15.0) % Plt Count 211 (130-450) 10^3/uL MPV 9.4 (7.4-11.4) fL Neut # (Auto) 5.3 (1.5-6.6) 10^3/uL Lymph # (Auto) 0.4 L (1.5-3.5) 10^3/uL [place] # (Auto) 1.1 H (0.0-1.0) 10^3/uL Eos # (Auto) 0.1 (0.0-0.7) 10^3/uL Baso # (Auto) 0.1 (0.0-0.1) 10^3/uL Absolute Nucleated RBC 0.00 x10^3/uL Nucleated RBC % 0.0 /100WBC VBG pH (7.31-7.41) Ionized Calcium (1.15-1.33) mmol/L Sodium (135-145) mmol/L Potassium (3.5-5.0) mmol/L Chloride (101-111) mmol/L Carbon Dioxide (21-32) mmol/L Anion Gap (6-13) BUN (6-20) mg/dL Creatinine (0.6-1.2) mg/dL Estimated GFR (MDRD) (>89) Glucose (70-100) mg/dL Calcium (8.5-10.3) mg/dL Phosphorus (2.5-4.6) mg/dL Magnesium (1.7-2.8) mg/dL Total Bilirubin (0.2-1.0) mg/dL Direct Bilirubin (0.1-0.5) mg/dL AST (10-42) IU/L ALT (10-60) IU/L Alkaline Phosphatase (42-121) IU/L Ammonia (7-35) umol/L Total Protein (6.7-8.2) g/dL Albumin (3.2-5.5) g/dL Globulin (2.1-4.2) g/dL Sepsis Event Note (H) - Evaluation Current Stage of Sepsis: Ruled out Assessment/Plan - Problem List (1) Acute alcoholic pancreatitis Impression: Patient has a history of chronic alcohol abuse and presents with acute pancreatitis. Amylase 491, and lipase 1608. LFTs elevated. He also has elevated billirubin and tea colored urine. CT reveals peripancreatic inflammation without fluid collection. No evidence of ductal dilation. Although gallstone induced pancreatitis is less likely we did do an ultrasound of the abdomen and was negative for stones or cholecystitis changes. Treatment consisted of 4 L of lactated Ringer and that first night and he has been maintained on lactated Ringer since then which was stopped 04/23/21. [place] score was 4% estimated mortality for nonoperative management at this time. Advanced to full liquids yesterday and is tolerating without nausea or increased pain. His trended lipase is showing improvement. He was initially 2556>> 1608>> 672>>167 Trended amylase 491>> 175 Bilirubin and AST with ALT remain relatively unchanged. He continues to have tea colored urine. Plan: Continue to support with antiemetics, pain medicine and I will change his pain meds to po today. Stop IV meds in preparation for transitioning to outpatient support. Advance diet to regular diet. Transfer from ICU to Med Surg today. No tele and no glucometer sticks. If he is eating, walking, off IV pain meds, may be able to go home 04/26? I let him know that. Qualifiers: Acute pancreatitis complication: unspecified Qualified Code(s): K85.20 - Alcohol induced acute pancreatitis without necrosis or infection (2) Lactic acidosis resolved Impression: Lactic acid started at 7.9 on admission. After aggressive resuscitation he was 1.2 by the morning of April 21. I am attributing that mainly to liver failure and dehydration. We do not feel he had sepsis. (3) Alcoholic hepatitis Impression: His LFTs are elevated and he has evidence of hepatic steatosis on CT. He has chronic transaminitis but it was worse upon admission. CT showed no evidence of ductal dilatation. INR normal. As we trend his LFTs they remain elevated. He has been counseled on the importance of alcohol cessation. They have trended in the downward direction which is good but they are not going down quickly. We will continue to monitor for signs and symptoms of liver failure. Ammonia is 43 and while I do think some of his slow, pedantic, lethargic speech is from libirum ( I am reducing dose) I will add lactulose. Qualifiers: Ascites presence: without ascites Qualified Code(s): K70.10 - Alcoholic hepatitis without ascites (4) Alcohol abuse Impression: This is the cause of his acute pancreatitis. His EtOH level was 45.7 upon admission. Withdrawal has been present and resolved since 04/23. I am reducing li brium and stopping it tomorrow. Changing all his meds to po. CIWA protocol with Ativan as needed will be stopped today. He has been changed from IV Thiamine to po thiamine. He was counseled on the importance of alcohol cessation and social work Has provided him with resources. He plans on moving to [place] and they have given him a list of providers and alcohol abuse centers there. He is asking that we not discuss his case with his commanding officer. He is [employer] and will be mustard out within 30 days. He is not clear about why that is happening. (5) Alcohol withdrawal Impression: He has a tremor at baseline and he feels like he is more tremulous due to the pancreatitis. But he has been consistently tachycardic and hypertensive. I s tarted him on Librium scheduled dose 72 hours ago and increased it 48 hours ago. Sleepy but stable and vital signs have improved. I will reduce the librium and stop tomorrow am. Off benzo except prn by 7 am tomorrow. (6) Hydronephrosis of right kidney Impression: This once again remains evident on CT the abdomen pelvis and is stable compared to prior imaging from last year. No evidence of obvious mass or obstruction. He has been following with urology [facility] and will continue to do so once discharged. (7) Hypertension Impression: Hypertension has improved with resumption of his meds but he is still tachycardic and diastolic BP still not at goal. At home he takes a combined amlodipine and lisinopril tablet. I will increase his metoprolol. (8) Psoriasis Impression: He will continue Cosentyx on outpatient basis. Qualifiers: Qualified Code(s): K85.20 - Alcohol induced acute pancreatitis without necrosis or infection Qualifiers: Qualified Code(s): K85.20 - Alcohol induced acute pancreatitis without necrosis or infection
[2021-04-24] MEDS: HYDROmorphone 2 MG TABLET PO PRN (12:54)
[2021-04-25 05:40] LABS: BASOPHILS # (AUTO) 0.1 10^3/uL (0.0-0.1); BASOPHILS % (AUTO) 1.1 %; EOSINOPHILS # (AUTO) 0.1 10^3/uL (0.0-0.7); EOSINOPHILS % (AUTO) 1.8 %; HCT - HEMATOCRIT 36.2 % (42.0-52.0); HGB - HEMOGLOBIN 12.3 g/dL (14.0-18.0); LYMPHOCYTES # (AUTO) 0.2 10^3/uL (1.5-3.5); LYMPHOCYTES % (AUTO) 4.7 %; MEAN CORPUSCULAR HEMOGLOBIN 33.2 pg (27.0-31.0); MEAN CORPUSCULAR VOLUME 97.6 fL (80.0-94.0); MEAN PLATELET VOLUME 9.5 fL (7.4-11.4); MONOCYTES # (AUTO) 0.8 10^3/uL (0.0-1.0); MONOCYTES % (AUTO) 17.6 %; NEUTROPHILS # (AUTO) 3.3 10^3/uL (1.5-6.6); NEUTROPHILS % (AUTO) 74.1 %; PLT - PLATELET COUNT 195 10^3/uL (130-450); RED BLOOD COUNT 3.71 10^6/uL (4.70-6.10); RED CELL DISTRIBUTION WIDTH 17.2 % (12.0-15.0); WHITE BLOOD COUNT 4.4 x10^3/uL (4.8-10.8)
[2021-04-25 05:55] LABS: ALBUMIN 2.9 g/dL (3.2-5.5); BILIRUBIN,DIRECT 2.9 mg/dL (0.1-0.5); CREATININE 0.9 mg/dL (0.6-1.2); MAGNESIUM 1.9 mg/dL (1.7-2.8); PHOSPHORUS 2.6 mg/dL (2.5-4.6); POTASSIUM 3.7 mmol/L (3.5-5.0); TOTAL PROTEIN 6.1 g/dL (6.7-8.2)
--- NOTE | 2021-04-25 08:16 | PROVIDER PROGRESS NOTE ---
Assessment/Plan - Problem List (1) Acute alcoholic pancreatitis Qualifiers: Qualified Code(s): K85.20 - Alcohol induced acute pancreatitis without necrosis or infection Assessment/Plan: Improving. Lipase is down to 167. Patient tolerated a regular diet for breakfast today. Patient has been experiencing frequent diarrhea since receiving oral contrast yesterday. We will observe patient through today. Anticipating discharge 04/26/2021. (2) Alcohol abuse Assessment/Plan: Patient was on CIWA protocol at admission. This was discontinued on 04/23/2021. He was counseled on the importance of alcohol cessation and social work provided him with resources. (3) Alcoholic hepatitis Qualifiers: Ascites presence: without ascites Qualified Code(s): K70.10 - Alcoholic hepatitis without ascites Assessment/Plan: His LFTs are elevated and he has evidence of hepatic steatosis on CT. He has chronic transaminitis but it was worse upon admission. CT showed no evidence of ductal dilatation. INR normal. (4) Hydronephrosis of right kidney Assessment/Plan: This once again remains evident on CT the abdomen pelvis and is stable compared to prior imaging from last year. No evidence of obvious mass or obstruction. He has been following with urology [facility] and will continue to do so once discharged. (5) Psoriasis Assessment/Plan: He will continue Cosentyx on outpatient basis. - Current Meds Current Meds: Current Medications Generic Name Dose Route Start Last Admin Trade Name Freq PRN Reason Stop Dose Admin Amlodipine Besylate 5 mg 04/23/21 09:00 04/24/21 08:15 Amlodipine 5 Mg Tablet PO 5 mg DAILY TAB Administration Docusate Sodium 250 - 500 mg 04/22/21 11:00 04/24/21 08:27 Docusate Sodium 250 Mg Capsule PO Not Given DAILY TAB Enoxaparin Sodium 40 mg 04/21/21 09:00 04/24/21 08:16 Enoxaparin 40 Mg/0.4 Ml Syringe SUBQ 40 mg DAILY TAB Administration Hydromorphone HCl 1 mg 04/24/21 11:37 04/24/21 12:54 Hydromorphone 2 Mg Tablet PO 1 mg Q6HR PRN Administration Severe Pain Lidocaine 1 patch 04/23/21 19:31 04/23/21 20:13 Lidocaine Patch 5% TOP 1 patch DAILY PRN Administration PAIN Lisinopril 20 mg 04/23/21 09:00 04/24/21 08:16 Lisinopril 20 Mg Tablet PO 20 mg DAILY TAB Administration Metoprolol Tartrate 50 mg 04/24/21 21:00 04/24/21 20:18 Metoprolol Tartrate 25 Mg Tablet PO 50 mg BID TAB Administration Nicotine 1 patch 04/24/21 09:00 04/24/21 08:15 Nicotine 14 Mg Patch TOP 1 patch DAILY TAB Administration Ondansetron HCl 4 mg 04/20/21 20:22 04/23/21 15:20 Ondansetron 4 Mg/2 Ml Vial IVP 4 mg Q6HR PRN Administration Nausea / Vomiting Oxymetazoline HCl 2 sprays 04/21/21 22:25 04/23/21 09:00 Oxymetazoline Hcl 100 Sprays Bottle TOMMY 2 sprays BID PRN Administration Nasal Congestion Polyethylene Glycol 17 gm 04/23/21 09:00 04/24/21 08:14 Polyethylene Glycol 3350 17 Gm Packet PO 17 gm DAILY TAB Administration Multivit/Folic Acid/Iron 1 tab 04/24/21 08:00 04/24/21 08:33 Vitamin Tablet PO 1 tab DAILYWM TAB Administration Senna 8.6 - 17.2 mg 04/22/21 11:00 04/24/21 08:27 Senna 8.6 Mg Tablet PO Not Given DAILY TAB Sodium Chloride 10 ml 04/21/21 01:00 04/24/21 23:50 Sodium Chloride Flush 0.9% 10 Ml Syringe IVP 10 ml 0100,0900,1700 TAB Administration Sodium Chloride 10 ml 04/20/21 20:22 04/23/21 09:17 Sodium Chloride Flush 0.9% 10 Ml Syringe IVP 10 ml PRN PRN Administration NEEDED PER PROVIDER ORDERS Thiamine HCl 100 mg 04/23/21 09:00 04/24/21 08:28 Thiamine 100 Mg Tablet PO 100 mg DAILY TAB Administration - Lab Result Fish Bone Diagrams: 04/25/21 04:37 04/25/21 04:37 Subjective - Subjective Patient Reports: Other (He was resting comfortably in bed at time of exam. Reports having diarrhea all through the night since receiving contrast for imaging yesterday. He has lower extremity edema 2+. He tolerated regular breakfast well today. He denies any other complaints.) Objective Vital Signs: Vital Signs - 24 hr 04/24/21 04/24/21 04/24/21 13:00 15:38 20:18 Temperature 36.7 C 37.1 C Heart Rate [ 99 Brachial] Heart Rate [ 100 Monitoring electrodes] Respiratory 16 20 Rate Blood Pressure 132/93 H Blood Pressure 115/80 125/83 H [Right Brachial artery] O2 Saturation 93 94 04/24/21 23:58 Temperature 36.9 C Heart Rate [ 100 Brachial] Heart Rate [ Monitoring electrodes] Respiratory 18 Rate Blood Pressure Blood Pressure 133/88 H [Right Brachial artery] O2 Saturation 90 L Oxygen O2 Source Room air I&O (Last 24 Hrs): Intake and Output Totals x24h 04/23/21 04/24/21 04/25/21 23:59 23:59 23:59 Intake Total 3180 958 500 Output Total 1000 93 Balance 2180 958 407 General: Alert, Oriented x3, No acute distress HEENT: PERRLA, EOMI Neck: Supple, No JVD Neuro: Alert, Non Focal, Oriented Times 3 Cardiovascular: Regular rate Respiratory: Chest non-tender, No respiratory distress, Breath sounds nml Abdomen: Normal bowel sounds, Soft, No tenderness, No masses Extremities: No clubbing, No cyanosis, Other (2+ lower ext edema) - Results Results: Laboratory Results WBC 4.4 x10^3/uL (4.8-10.8) L 04/25/21 04:37 RBC 3.71 10^6/uL (4.70-6.10) L 04/25/21 04:37 Hgb 12.3 g/dL (14.0-18.0) L 04/25/21 04:37 Hct 36.2 % (42.0-52.0) L 04/25/21 04:37 MCV 97.6 fL (80.0-94.0) H 04/25/21 04:37 MCH 33.2 pg (27.0-31.0) H 04/25/21 04:37 MCHC 34.0 g/dL (32.0-36.0) 04/25/21 04:37 RDW 17.2 % (12.0-15.0) H 04/25/21 04:37 Plt Count 195 10^3/uL (130-450) 04/25/21 04:37 MPV 9.5 fL (7.4-11.4) 04/25/21 04:37 Neut # (Auto) 3.3 10^3/uL (1.5-6.6) 04/25/21 04:37 Lymph # (Auto) 0.2 10^3/uL (1.5-3.5) L 04/25/21 04:37 [place] # (Auto) 0.8 10^3/uL (0.0-1.0) 04/25/21 04:37 Eos # (Auto) 0.1 10^3/uL (0.0-0.7) 04/25/21 04:37 Baso # (Auto) 0.1 10^3/uL (0.0-0.1) 04/25/21 04:37 Absolute Nucleated RBC 0.00 x10^3/uL 04/25/21 04:37 Total Counted 100 04/21/21 04:13 Band Neuts % (Manual) 0 % (0-10) 04/21/21 04:13 Abnorm Lymph % (Manual) 0 % 04/21/21 04:13 Nucleated RBC % 0.0 /100WBC 04/25/21 04:37 Neutrophils # (Manual) 7.3 10^3/uL (1.5-6.6) H 04/21/21 04:13 Lymphocytes # (Manual) 0.2 10^3/uL (1.5-3.5) L 04/21/21 04:13 Monocytes # (Manual) 1.0 10^3/uL (0.0-1.0) 04/21/21 04:13 Eosinophils # (Manual) 0.0 10^3/uL (0-0.7) 04/21/21 04:13 Basophils # (Manual) 0.0 10^3/uL (0-0.1) 04/21/21 04:13 Differential Comment MANUAL DIFFERENTIAL 04/21/21 04:13 WBC Morphology NORMAL APPEARANCE (NORMAL) 04/21/21 04:13 Platelet Estimate DECREASED (<130,000) (NORMAL) 04/21/21 04:13 Platelet Morphology NORMAL APPEARANCE (NORMAL) 04/21/21 04:13 RBC Morph Micro Appear NORMAL APPEARANCE (NORMAL) 04/21/21 04:13 PT 13.6 secs (9.9-12.6) H 04/20/21 20:37 INR 1.2 (0.8-1.2) 04/20/21 20:37 VBG pH 7.415 (7.31-7.41) H 04/24/21 04:07 VBG pCO2 33.5 mmHg (41-51) L 04/20/21 20:37 VBG pO2 83.7 mmHg (25-47) H 04/20/21 20:37 VBG HCO3 18.7 mmol/L (23-28) L 04/20/21 20:37 VBG Total CO2 19.7 mmol/L (24-29) L 04/20/21 20:37 VBG O2 Saturation 96.0 % (60-80) H 04/20/21 20:37 VBG Base Excess -5.7 mmol/L (-2 - +2) L 04/20/21 20:37 Ionized Calcium 1.08 mmol/L (1.15-1.33) L 04/24/21 04:07 Sodium 135 mmol/L (135-145) 04/25/21 04:37 Potassium 3.7 mmol/L (3.5-5.0) 04/25/21 04:37 Chloride 94 mmol/L (101-111) L 04/25/21 04:37 Carbon Dioxide 28 mmol/L (21-32) 04/25/21 04:37 Anion Gap 13.0 (6-13) 04/25/21 04:37 BUN 7 mg/dL (6-20) 04/25/21 04:37 Creatinine 0.9 mg/dL (0.6-1.2) 04/25/21 04:37 Estimated GFR (MDRD) 94 (>89) 04/25/21 04:37 Glucose 83 mg/dL (70-100) 04/25/21 04:37 Lactic Acid 1.2 mmol/L (0.5-2.2) 04/21/21 11:08 Calcium 9.0 mg/dL (8.5-10.3) 04/25/21 04:37 Phosphorus 2.6 mg/dL (2.5-4.6) 04/25/21 04:37 Magnesium 1.9 mg/dL (1.7-2.8) 04/25/21 04:37 Total Bilirubin 5.0 mg/dL (0.2-1.0) H 04/25/21 04:37 Direct Bilirubin 2.9 mg/dL (0.1-0.5) H 04/25/21 04:37 AST 277 IU/L (10-42) H 04/25/21 04:37 ALT 119 IU/L (10-60) H 04/25/21 04:37 Alkaline Phosphatase 268 IU/L (42-121) H 04/25/21 04:37 Ammonia 43.6 umol/L (7-35) H 04/24/21 04:07 Total Protein 6.1 g/dL (6.7-8.2) L 04/25/21 04:37 Albumin 2.9 g/dL (3.2-5.5) L 04/25/21 04:37 Globulin 3.2 g/dL (2.1-4.2) 04/25/21 04:37 Albumin/Globulin Ratio 0.9 (1.0-2.2) L 04/20/21 18:17 Triglycerides 90 mg/dL (-149) 04/20/21 20:37 Cholesterol 157 mg/dL (-199) 04/20/21 20:37 LDL Cholesterol, Calc 113 mg/dL (-129) 04/20/21 20:37 VLDL Cholesterol 18 mg/dL 04/20/21 20:37 HDL Cholesterol 26 mg/dL (60-) L 04/20/21 20:37 LDL/HDL Ratio 4.3 (<3.6) 04/20/21 20:37 Cholesterol/HDL Ratio 6.0 (<5.0) 04/20/21 20:37 Amylase 175 U/L (28-100) H 04/22/21 04:18 Lipase 167 U/L (22-51) H 04/23/21 04:03 25-OH Vitamin D Total 13 ng/mL (30-100) L 04/24/21 12:19 Nasal Adenovirus (PCR) NOT DETECTED 04/20/21 19:50 Nasal B. parapertussis DNA (PCR) NOT DETECTED 04/20/21 19:50 Nasal Coronavir 229E PCR NOT DETECTED 04/20/21 19:50 Nasal Coronavir HKU1 PCR NOT DETECTED 04/20/21 19:50 Nasal Coronavir NL63 PCR NOT DETECTED 04/20/21 19:50 Nasal Coronavir OC43 PCR NOT DETECTED 04/20/21 19:50 Nasal Enterovir/Rhinovir PCR NOT DETECTED 04/20/21 19:50 Nasal Influenza B PCR NOT DETECTED 04/20/21 19:50 Nasal Influenza A PCR NOT DETECTED 04/20/21 19:50 Nasal Parainfluen 1 PCR NOT DETECTED 04/20/21 19:50 Nasal Parainfluen 2 PCR NOT DETECTED 04/20/21 19:50 Nasal Parainfluen 3 PCR NOT DETECTED 04/20/21 19:50 Nasal Parainfluen 4 PCR NOT DETECTED 04/20/21 19:50 Nasal RSV (PCR) NOT DETECTED 04/20/21 19:50 Nasal Screen MRSA (PCR) NEGATIVE (NEGATIVE) 04/20/21 21:50 Nasal B.pertussis DNA PCR NOT DETECTED 04/20/21 19:50 Nasal C.pneumoniae (PCR) NOT DETECTED 04/20/21 19:50 Tommy Human Metapneumo PCR NOT DETECTED 04/20/21 19:50 Nasal M.pneumoniae (PCR) NOT DETECTED 04/20/21 19:50 Nasal SARS-CoV-2 (PCR) NOT DETECTED 04/20/21 19:50 Ethyl Alcohol 45.7 mg/dL 04/20/21 18:17 Serum Ketones NEGATIVE (NEGATIVE) 04/20/21 19:52 Sepsis Event Note (H) - Evaluation Current Stage of Sepsis: Ruled out ABX Reporting Has patient been on IV antibiotics over the past 48 hours?: No
[2021-04-25] MEDS: THIAMINE 100 MG TABLET PO SCH (09:13)
[2021-04-25] MEDS: ENOXAPARIN 40 MG/0.4 ML SYRINGE SUBQ SCH (09:13)
[2021-04-25] MEDS: SENNA 8.6 MG TABLET PO SCH (09:13)
[2021-04-25] MEDS: lisinopriL 20 MG TABLET PO SCH (09:14)
[2021-04-25] MEDS: amLODIPine 5 MG TABLET PO SCH (09:14)
[2021-04-25] MEDS: METOPROLOL TARTRATE 25 MG TABLET PO SCH ×2 (09:14→20:54)
[2021-04-25] MEDS: PRENATAL VITAMIN TABLET PO SCH (09:14)
[2021-04-25] MEDS: DOCUSATE SODIUM 250 MG CAPSULE PO SCH (09:15)
[2021-04-25] MEDS: polyethylene glycoL 3350 17 GM PACKET PO SCH (09:15)
[2021-04-25] MEDS: NICOTINE 14 MG PATCH TOP SCH (09:24)
[2021-04-25] MEDS: SODIUM CHLORIDE FLUSH 0.9% 10 ML SYRINGE IVP SCH ×2 (09:24→16:26)
[2021-04-25] MEDS: HYDROmorphone 2 MG TABLET PO PRN ×2 (09:37→20:48)
[2021-04-25] MEDS ORDERED: LACTOBACILLUS RHAMNOSUS GG CAPSULE PO SCH (10:00)
[2021-04-25] MEDS ORDERED: SIMETHICONE CHEW 80 MG TABLET PO PRN (10:42)
[2021-04-25] MEDS: chlordiazePOXIDE 5 MG CAPSULE PO SCH ×2 (13:57→20:54)
[2021-04-25] MEDS: CHOLECALCIFEROL 25 MCG TABLET PO SCH (16:25)
[2021-04-25] MEDS: ONDANSETRON 4 MG/2 ML VIAL IVP PRN (16:31)
[2021-04-26] MEDS: SODIUM CHLORIDE FLUSH 0.9% 10 ML SYRINGE IVP SCH ×2 (02:56→08:47)
[2021-04-26 05:33] LABS: BASOPHILS % (AUTO) 0.8 %; EOSINOPHILS % (AUTO) 0.2 %; HCT - HEMATOCRIT 33.2 % (42.0-52.0); HGB - HEMOGLOBIN 11.5 g/dL (14.0-18.0); LYMPHOCYTES # (AUTO) 0.2 10^3/uL (1.5-3.5); LYMPHOCYTES % (AUTO) 3.3 %; MEAN CORPUSCULAR HEMOGLOBIN 33.4 pg (27.0-31.0); MEAN CORPUSCULAR HGB CONC 34.6 g/dL (32.0-36.0); MEAN CORPUSCULAR VOLUME 96.5 fL (80.0-94.0); MEAN PLATELET VOLUME 9.3 fL (7.4-11.4); MONOCYTES # (AUTO) 0.8 10^3/uL (0.0-1.0); MONOCYTES % (AUTO) 17.3 %; NEUTROPHILS # (AUTO) 3.7 10^3/uL (1.5-6.6); NEUTROPHILS % (AUTO) 77.2 %; PLT - PLATELET COUNT 177 10^3/uL (130-450); RED BLOOD COUNT 3.44 10^6/uL (4.70-6.10); RED CELL DISTRIBUTION WIDTH 16.9 % (12.0-15.0); WHITE BLOOD COUNT 4.9 x10^3/uL (4.8-10.8)
[2021-04-26 05:37] LABS: BUN - BLOOD UREA NITROGEN < 5 mg/dL (6-20); CALCIUM 8.4 mg/dL (8.5-10.3); CARBON DIOXIDE - CO2 22 mmol/L (21-32); CHLORIDE 97 mmol/L (101-111); CREATININE 0.9 mg/dL (0.6-1.2); GFR - MDRD 94 (>89); GLUCOSE 94 mg/dL (70-100); POTASSIUM 3.3 mmol/L (3.5-5.0); SODIUM 130 mmol/L (135-145)
[2021-04-26] MEDS ORDERED: POTASSIUM CHLORIDE 20 MEQ TABLET PO ONE (07:15)
[2021-04-26] MEDS ORDERED: MAGNESIUM SULFATE 2 GRAM 2 GM/50 ML BAG IV ONE (07:16)
[2021-04-26] MEDS: ENOXAPARIN 40 MG/0.4 ML SYRINGE SUBQ SCH (08:45)
[2021-04-26] MEDS: THIAMINE 100 MG TABLET PO SCH (08:45)
[2021-04-26] MEDS: chlordiazePOXIDE 5 MG CAPSULE PO SCH (08:45)
[2021-04-26] MEDS: amLODIPine 5 MG TABLET PO SCH (08:45)
[2021-04-26] MEDS: PRENATAL VITAMIN TABLET PO SCH (08:45)
[2021-04-26] MEDS: lisinopriL 20 MG TABLET PO SCH (08:45)
[2021-04-26] MEDS: METOPROLOL TARTRATE 25 MG TABLET PO SCH (08:45)
[2021-04-26] MEDS: CHOLECALCIFEROL 25 MCG TABLET PO SCH (08:45)
[2021-04-26] MEDS: DOCUSATE SODIUM 250 MG CAPSULE PO SCH (08:46)
[2021-04-26] MEDS: SENNA 8.6 MG TABLET PO SCH (08:46)
[2021-04-26] MEDS: polyethylene glycoL 3350 17 GM PACKET PO SCH (08:46)
[2021-04-26] MEDS: NICOTINE 14 MG PATCH TOP SCH (08:47)
[2021-04-26] MEDS ORDERED: LOPERAMIDE 2 MG CAPSULE PO PRN (11:50)
--- NOTE | 2021-04-26 11:51 | DISCHARGE SUMMARY ---
Discharge Summary Admit Date: 04/20/21 Discharge Date: 04/26/21 Discharging Provider: Denny Rodriguez Primary Care Provider: [facility] Code Status: Attempt Resuscitation Condition at Discharge: Stable Discharge Disposition: 01 Home, Self Care - DIAGNOSES Admission Diagnoses: Acute alcoholic pancreatitis Lactic acidosis Alcoholic hepatitis Alcohol abuse Tramadol Hydronephrosis of right kidney Hypertension Psoriasis Discharge Diagnoses with Status of Each Condition: Acute alcoholic pancreatitis: Improved/resolved Lactic acidosis: Acute. Resolved Alcoholic hepatitis: Stable. Patient to follow-up with his primary care physician in the outpatient setting. Alcohol abuse: Chronic. Patient provided material on alcohol cessation and counseled on quitting. Tremor: Improved. 2/ Alcohol withdrawal. Librium prescribed at discharge Hydronephrosis of right kidney: Stable from previous evaluation Hypertension: Chronic. Continue home medication Psoriasis: Chronic. Continue home medication - HPI History of Present Illness: This is a 40-year-old male with a past medical history significant for tremor, hypertension, psoriasis, alcohol abuse who presents today complaining of abdominal pain associated with nausea and vomiting. He states his pain began around 6 AM this morning and he has had multiple episodes of emesis. He states his pain at worst was about a 7 out of 10 and is located in epigastric region. It is nonradiating. It is now 4 out of 10 after receiving pain medication in the emergency department. His emesis has been nonbloody. He reports no fevers but has had chills. Denies chest pain, dyspnea, dysuria, urgency. He reports drinking 2-3 alcoholic beverages a day that he has been doing so since college. He denies a history of alcohol withdrawal. He states he has been told he had an inflamed liver in the past but they thought it may have been attributed to methotrexate which she was on for psoriasis and was discontinued about 6 months ago. He states he has had a tremor now for quite a few months and he has been worked up by neurology for this. He states his tremor is worse today but feels like this is due to the stress on his body. He reports no prior episode of pancreatitis or similar episode abdominal pain in the past. He has been seen by urology the [facility] for the right hydronephrosis. He states he underwent a cystoscopy where he had some tissue removed which they thought may have been causing blockage. He states they are currently monitoring him and no further procedures are planned at this time. - HOSPITAL COURSE Hospital Course: Patient was admitted to the ICU and started on IV fluids with lactated Ringer's. He was treated with Zofran for nausea and Dilaudid as needed for pain. His liver enzymes have been elevated. Work-up included CT of the abdomen pelvis and subsequent abdominal ultrasound which did not show any bile duct dilatation. The common bile duct measured 3.5 mm. Hepatic steatosis was noted however. CT again commensurate on right hydronephrosis. He has been seen by urology at the [facility] for this. He was placed on [facility] protocol for alcohol withdrawal. He had several bouts of diarrhea for which a C. difficile test was checked and noted to be negative. He was prescribed Imodium. On 04/26/2021 he was discharged in stable condition. - ALLERGIES Allergies/Adverse Reactions: Allergies Allergy/AdvReac Type Severity Reaction Status Date / Time cefaclor [From Ceclor] Allergy Rash Verified 04/21/21 08:18 Sulfa (Sulfonamide Allergy Rash Verified 04/21/21 08:18 Antibiotics) - MEDICATIONS Home Medications: Ambulatory Orders Medication Instructions Recorded Confirmed LORazepam [Ativan] 1 mg PO BID #15 tablet 10/05/20 04/20/21 Metoprolol Tartrate [Lopressor] 25 mg PO BID #60 tablet 10/05/20 04/20/21 Secukinumab [Cosentyx (2 Syringes)] 150 mg SUBQ Q28D 10/05/20 04/21/21 Amlodipine Besylate/Benazepril 1 cap PO DAILY 04/21/21 04/21/21 [Amlodipine-Benazepril 5-20 mg] chlordiazePOXIDE [Librium] 5 mg PO BID PRN 5 Days #10 cap 04/26/21 - PHYSICAL EXAM AT DISCHARGE General Appearance: positive: Alert, Mild distress Eyes Bilateral: positive: PERRL, EOMI ENT: positive: Dry mucous membranes Neck: positive: No JVD, Trachea midline Respiratory: positive: Chest non-tender, No respiratory distress, Breath sounds nml. negative: Wheezes, Rales, Rhonchi Cardiovascular: positive: Regular rate & rhythm Abdomen: positive: Non-tender, No organomegaly, Nml bowel sounds, No distention. negative: Guarding, Rebound Back: positive: Nml inspection Skin: positive: Color nml, Warm, Dry, Skin rash (psoriatic plaques) Extremities: positive: Non-tender, Full ROM, Pedal edema (+1 pitting) Neurologic/Psychiatric: positive: Oriented x3, Mood/affect nml - LABS Result Diagrams: 04/26/21 04:40 04/26/21 04:40 - SEPSIS Current Stage of Sepsis: Ruled out - TIME SPENT Time Spent in Discharge (Minutes): 15
--- NOTE | 2021-04-26 11:55 | Discharge Plan ---
Discharge Plan Problem Reviewed?: Yes Disposition: Home, Self Care Condition: Stable Prescriptions: chlordiazePOXIDE [Librium] 5 mg PO BID PRN 5 Days #10 cap PRN Reason: Alcohol Withdrawal Diet: Regular Activity Restrictions: No Restrictions Instruction Topics: Chlordiazepoxide capsules Health Concerns: On 04/20/21 with abdominal pain for which work-up showed you had pancreatitis. This was thought to be secondary to alcohol abuse. You were admitted to the ICU and treated with IV hydration. You were also administered pain medication for your pain. Over the course of 6 days your symptoms improved enough such that you were transferred from the ICU to the [facility] floor. As a result of oral contrast given for imaging you were experiencing diarrhea. This was tested for an infection called C. difficile and was noted to be negative. As a result you were given a dose of Imodium to help decrease the frequency of your stools. You may continue using Imodium at home. This can be obtained [id number]. You are being discharged in stable condition. You have been provided resources regarding alcohol cessation. Should your abdominal pain worsen or return do not hesitate to seek medical attention either by calling your primary care physician or coming to the emergency department. The above plan was explained to you, you expressed understanding and are in agreement. No Smoking: If you smoke, Please STOP! Call for help. Follow-up with: Provider,Other [Primary Care Provider] -
[2021-04-26 14:24] VITALS: BP 136/90
== END 2021-04-26 14:15 | disposition home or self-care (01) | DRG 439 ==
LOC: EDBD → EDUNIT# → ED 17:55 → ICU 20:22 → MS2 04-24 12:09
PROVIDERS: ADMIT Internal Medicine; ATTEND Internal Medicine
DX: K85.20 Alcohol induced acute pancreatitis without necrosis or infection (principal); E87.2 Acidosis; F10.139 Alcohol abuse with withdrawal, unspecified; N13.30 Unspecified hydronephrosis; K70.10 Alcoholic hepatitis without ascites; R25.1 Tremor, unspecified; I10 Essential (primary) hypertension; L40.9 Psoriasis, unspecified; R19.7 Diarrhea, unspecified; Z20.822 Contact with and (suspected) exposure to COVID-19; Z87.891 Personal history of nicotine dependence; K76.0 Fatty (change of) liver, not elsewhere classified
CPT/HCPCS: 0202U; 36415; 74177; 76705; 80048; 80053; 80061; 80076; 80320; 82009; 82140; 82150; 82306; 82330; 82803; 83605; 83690; 83735; 84100; 84132; 85025; 85610; 87150; 87493; 96365; 96375; 99284; 99285; A9270; J1170; J1650; J2060; J3411; J3490; J7040; J7120; Q9967; 83721